=== PATIENT | male | born 1985 | race Hispanic/Latino ===

== ENCOUNTER 2023-06-30 15:07 | Emergency (ER) | payer OTHER, SELFPAY ==
[2023-06-30 15:08] VITALS: BP 162/106; PULSE 93; RESP 18; TEMP 36.4; O2SAT 98
--- NOTE | 2023-06-30 15:41 | EDS_ITS ---
HPI History of Present Illness Chief Complaint: Complaint Informant: patient Narrative Narrative: Patient states started by having diarrhea for about the past 1 week. It has been watery, some occasional lower abdominal cramping that is mild, and he has hemorrhoids that he can feels whenever he bears down to either have diarrhea or to urinate, he states he can feel them come out and then go back in. Right now while not Valsalva-maneuvering, he does not have any discomfort there and feels like they are back inside. He has been having bright red blood per rectum along with the diarrhea/bowel movements. Also states about a week ago he slipped on some black ice outside, falling to his right side injuring his right lower lateral rib cage that has been hurting whenever he moves or takes deep breaths ever since but he denies any dyspnea or other chest discomfort. He denies any hematuria but has been having urinary symptoms for several days, states he feels like he needs to urinate but is having trouble getting it all out and does not feel like he is emptying his bladder. There is some dysuria. He denies any travel out of the area recently. No recent antibiotics for anything. Denies any suspicious food intake. No known sick contacts. States he is on Ozempic which is new about 2 months ago, he was not having any problems or side effects initially until all of this started about a week ago. [facility] Medical History (Updated 06/30/23 @ 18:[address] Ladarius Perales MD) Bipolar 1 disorder Type 2 diabetes mellitus Home Medications hydrocortisone 1 %-pramoxine 1 % rectal foam (Proctofoam HC) 1 applic AL QHS PRN hemorrhoids 2 weeks #10 grams 06/30/23 [Rx Last Taken Unknown] sulfamethoxazole 800 mg-trimethoprim 160 mg tablet 1 tab PO BID #6 TABLETS 06/30/23 [Rx Last Taken Unknown] Allergy/AdvReac Type Severity Reaction Status Date / Time No Known Allergies Allergy Verified 06/30/23 15:08 Social History Smoking Status: Never smoker ROS ROS ED Constitutional Constitutional ED: Denies chills or fever(s) Eyes Eyes: Denies change in vision or diplopia ENT ENT ED: Denies rhinorrhea or sore throat Cardiovascular Cardiovascular: Denies chest pain or palpitations Respiratory/Chest Respiratory/Chest: Denies cough or dyspnea Gastrointestinal Gastrointestinal: Reports abdominal pain, diarrhea, hematochezia, hemorrhoids and vomiting; Denies melena or nausea Genitourinary Genitourinary ED: Reports dysuria, urinary frequency and other Details: Feels like trouble emptying bladder. no perineal pain, or pain when having BM except for anal pain due to hemorrhoids. ; Denies hematuria Musculoskeletal Musculoskeletal: Reports back pain; Denies neck pain Integumentary Denies abscess or rash Neurologic Neurologic: Denies headache(s), paresthesias or weakness Psychiatric Psychiatric: Denies suicidal ideation or suicidal thoughts EXAM Physical Exam Const Vital Signs: 06/30/23 15:08 06/30/23 17:08 Temperature 97.6 F L Temperature Source Temporal Pulse Rate 93 86 Respiratory Rate 18 14 Blood Pressure 162/106 H 155/82 H Blood Pressure Mean 124 106 Pulse Ox 98 97 Oxygen Delivery Method Room Air Room Air Positive well nourished, well developed and obese General Appearance ED: well developed and NAD Nutritional Appearance: obese HEENT Reports moist mucous membranes normocephalic and atraumatic Eyes PERRL and EOMs intact bilaterally Neck full ROM and supple Resp normal respiratory effort and clear to auscultation bilaterally Cardio regular rate, regular rhythm and no murmurs GI non-tender and non-distended Auscultation: normoactive bowel sounds Palpation: soft Back/Spine no CVA tenderness Back/Spine Narrative: Tender right lateral lumbar back, basically in ribs 10 and 11. No outward signs of trauma. No true CVA tenderness. General Back: other FROM Extremity normal to inspection General Extremety ED: Negative for edema, pulses abnormal or tenderness General Extremity: Negative for edema or pulses abnormal Neuro oriented x3, CN's II-XII intact bilaterally and no sensory deficits noted Sensorium / Orientation: awake and alert Motor Exam: strength 5/5 throughout Psych mental status grossly normal Skin no rashes or lesions noted and no wounds MDM MDM MDM Narrative Medical decision making narrative: I did obtain a 6 view x-ray series of the right rib cage including PA chest all of which is unremarkable on my interpretation. Radiology was in agreement no obvious fractures or pneumothorax. I did obtain some labs they look good, his urine shows no acute infection, will refer him to urology. Could be a urethritis, will try a 3-day course of bactrim to cover for bacterial etiologies; he does not have high risk for GC/Chlamydia, but I sent those off for testing and that is pending. He does not have any symptoms of prostate pain, but he is obese and I would be unable to reach his prostate on exam so I deferred that exam. Patient bladder scanned for 145 cc before urinating, he was only able to urinate less than 20 cc but based on this I would not advise a catheter. With regards to his diarrhea, 3 days of antibiotics is not likely to make this a lot worse, but if it does he is advised to stop them. He is more than likely having diarrhea from either a diet or viral etiology, less likely bacterial but we ordered an enteric bacterial panel just in case since he was having blood in it, although he does not have any specific risk factors for bacterial etiologies. The blood is more likely coming from the hemorrhoids talks about I will prescribe him something for that. Advised to follow-up. I do not think we need to treat him empirically for prostatitis at this time especially since he has acute diarrhea. Lab Data Attestation: I reviewed the patient's lab results. Labs: Laboratory Results - last 24 hr 06/30/23 06/30/23 15:55 18:19 WBC 6.3 RBC 6.29 H Hgb 16.9 H Hct 50.3 MCV 80.0 MCH 26.9 L MCHC 33.6 RDW Std Deviation 38.5 RDW Coeff of [place] 13.3 Plt Count 202 MPV 9.6 Immature Gran % (Auto) 0.500 Neut % (Auto) 52.8 Lymph % (Auto) 28.6 [place] % (Auto) 10.2 H Eos % (Auto) 7.3 H Baso % (Auto) 0.6 Absolute Neuts (auto) 3.3 Absolute Lymphs (auto) 1.79 Nucleated RBC % 0 Sodium 138 Potassium 4.1 Chloride 107 Carbon Dioxide 26.0 Anion Gap 5 BUN 8 Creatinine 0.96 Est GFR (MDRD) Af Amer 112 Est GFR (MDRD) Non-Af 93 BUN/Creatinine Ratio 8.3 L Glucose 131 H Calcium 8.9 Total Bilirubin 0.50 AST 48 H ALT 45 Alkaline Phosphatase 94 Total Protein 7.2 Albumin 4.1 Globulin 3.1 Albumin/Globulin Ratio 1.3 Urine Color Yellow Urine Clarity Sl. Cloudy Urine pH 5.0 Ur Specific [place] 1.030 Urine Protein 30 H Urine Glucose (UA) Normal Urine Ketones 5 H Urine Occult Blood 10 H Urine Nitrite Negative Urine Bilirubin Negative Urine Urobilinogen Normal Ur Leukocyte Esterase 25 H Urine RBC 0-5 SEEN Urine WBC 0-5 SEEN Ur Squamous Epith Cells 0-5 SEEN Urine Bacteria 0 SEEN Urine Mucus 2+ Radiography Diagnostic Testing: Clinical Impression(s) from Imaging Studies Ribs w/Chest X-Ray 06/30/23 16:03 IMPRESSION: Negative chest and right ribs series. Electronically Signed: Darius Hale MD at 16:29 EDT Reading Location ID and State: [facility] / [place] , Service support , Discharge Plan Triage Chief Complaint: Complaint ED Provider: Ladarius Perales Dx/Rx/DC Orders Clinical Impression: Contusion of rib on right side, Dysuria, Bleeding external hemorrhoids, Acute diarrhea Instructions: ED Dysuria, Uncertain Cause (Adult), ED Hemorrhoids Prescriptions: New sulfamethoxazole-trimethoprim [sulfamethoxazole-trimethoprim] 800-160 mg tablet 1 tab PO BID Qty: 6 0RF Proctofoam HC 1-1 % foam 1 applic AL QHS PRN (Reason: hemorrhoids) 14 Days Qty: 10 0RF Primary Care Provider: Care Physician,No Primary Referrals: Alexis Dumont MD [Med Staff - Active Staff] - 1 Week if not improving Disposition Disposition: Home, Self Care
--- NOTE | 2023-06-30 16:03 | RAD_ITS ---
EXAM: XR RIGHT RIBS AND AP CHEST, 3 OR MORE VIEWS CLINICAL INDICATION: injury/pain TECHNIQUE: Frontal and oblique views of the right ribs and frontal view of the chest. COMPARISON: None FINDINGS: LUNGS AND PLEURAL SPACES: Unremarkable. No consolidation or edema. No pneumothorax. No effusion. HEART: Unremarkable. Cardiac silhouette not enlarged. MEDIASTINUM: Central airways and mediastinal contour are unremarkable. BONES/JOINTS: Unremarkable. No evidence of displaced rib fractures. RAD/Ribs Uni Min 3V w/PA Chest IMPRESSION: Negative chest and right ribs series. Electronically Signed: Darius Hale MD at 16:29 EDT ,
[2023-06-30 16:27] LABS: Absolute Lymphocyte Count 1.79 X10^3/uL (0.83-4.51); Absolute Neutrophil Count 3.3 X10^3/uL (2.0-7.7); Basophil# 0.04 X10^3/uL; Basophil% 0.6 % (0-1); Eosinophil# 0.46 X10^3/uL; Eosinophils% 7.3 % (0-5); Hematocrit 50.3 % (40-54); Hemoglobin 16.9 g/dL (13.0-16.5); Lymphocyte # 1.79 X10^3/ul (0.83-4.51); Lymphocyte % 28.6 % (19-41); Mean Corp Hgb Conc 33.6 g/dL (32-36); Mean Corpuscular Hgb 26.9 pg (27.0-32.0); Mean Platelet Vol. 9.6 fl (6.2-12.0); Monocyte# 0.64 X10^3/uL; Monocyte% 10.2 % (0-10); NRBC Flagged by Analyzer 0 % (0-5); Neutrophil % 52.8 % (47-70); Platelet Count 202 K/mm3 (150-450); RBC Distribution Width CV 13.3 % (11.6-14.6); RBC Distribution Width SD 38.5 fl (35.1-43.9); Red Blood Count 6.29 M/mm3 (4.6-6.2); White Blood Count 6.3 K/mm3 (4.4-11.0)
[2023-06-30 16:43] LABS: ALB/GLOB Ratio 1.3 RATIO (0.9-2.4); AST(SGOT) 48 U/L (15-37); Alanine Aminotransfer ALT/SGPT 45 U/L (16-61); Albumin, Serum 4.1 g/dL (3.2-5.0); Alkaline Phosphatase 94 U/L (45-117); Anion Gap 5 (5-15); BUN 8 mg/dL (7-18); BUN/Creat Ratio 8.3 RATIO (10-20); Calcium,Total 8.9 mg/dL (8.5-10.1); Chloride 107 mmol/L (98-107); Creatinine, Serum 0.96 mg/dL (0.70-1.30); EST Glomerular Filtration Rate 93 mL/min (>60); Est Glom Filt Rate - Afr Amer 112 mL/min (>60); Globulin 3.1 g/dL (2.2-4.2); Glucose 131 mg/dL (74-106); Potassium 4.1 mmol/L (3.5-5.1); Protein, Total 7.2 g/dL (6.4-8.2); Sodium Level 138 mmol/L (136-145)
[2023-06-30 17:08] VITALS: BP 155/82; PULSE 86; RESP 14; O2SAT 97
[2023-06-30 18:22] LABS: Bacteria 0 SEEN /hpf (None Seen)
[2023-06-30 18:24] LABS: Color, Urine Yellow (Yellow); Glucose, Dipstick Normal (Normal); Ketone-Dipstick 5 mg/dl (Negative); Leukocyte Esterase-Dipstick 25 /ul (Negative); Nitrite-Dipstick Negative (Negative); Occult Blood-Urine 10 /ul (Negative); Protein-Dipstick 30 mg/dl (Negative); Urine Bilirubin Dipstick Negative (Negative); Urine Clarity Sl. Cloudy (Clear); Urine Urobilinogen Normal (Normal)
[2023-06-30 18:30] LABS: Mucous, Urine 2+ /hpf (<or=2+); Red Blood Cells-Urine 0-5 SEEN /hpf (0-5); Squamous Epithelial Cells - UA 0-5 SEEN /hpf (0-5); White Blood Cells 0-5 SEEN /hpf (0-5)
[2023-06-30 19:00] VITALS: BP 146/77; PULSE 79; RESP 18; O2SAT 97
[2023-06-30 19:08] VITALS: BP 146/77; PULSE 79; RESP 18; TEMP 36.5; O2SAT 97
== END 2023-06-30 19:08 | disposition home or self-care (01) ==
PROVIDERS: Emergency Provider Emergency Medicine; Visit Provider Emergency Medicine
DX: R19.7 Diarrhea, unspecified (principal); E11.9 Type 2 diabetes mellitus without complications; S20.211A Contusion of right front wall of thorax, initial encounter; W00.0XXA Fall on same level due to ice and snow, initial encounter; R30.0 Dysuria; K64.4 Residual hemorrhoidal skin tags; Z79.85 Long-term (current) use of injectable non-insulin antidiabetic drugs
CPT/HCPCS: 71101; 80053; 81001; 85025; 99283; A4216

== ENCOUNTER 2024-11-07 13:55 | Emergency (ER) | payer OTHER, SELFPAY ==
[2024-11-07 13:55] VITALS: BP 150/96; PULSE 96; RESP 20; TEMP 36.4; O2SAT 98
--- NOTE | 2024-11-07 14:41 | ED.VIS.BACK ---
HPI History of Present Illness Chief Complaint: Back Informant: patient Narrative Narrative: Right lower back pain 2 days ago at work. Works at [employer]. States talking and standing up felt pain in his back. Pain goes to his buttocks to his groin and lateral thigh. No loss of bowel or bladder control. Tylenol Motrin taken at home with mild relief. Did not take them today. Has been icing. History sciatica on the left side in 2015. He is diabetic with neuropathy. Denies any chronic kidney disease. He takes metformin and Ozempic. Spouse was on the phone states he was on gabapentin for his neuropathy however is not taking for over a year. Prior similar symptoms: Yes PFSH PFSH Medical History Bipolar 1 disorder Type 2 diabetes mellitus Home Medications ?Medication ?Instructions ?Recorded ?Last Taken ?Type hydrocortisone 1 %-pramoxine 1 % 1 applic MI QHS PRN hemorrhoids 2 06/30/23 Unknown Rx rectal foam (Proctofoam HC) weeks #10 grams sulfamethoxazole 800 1 tab PO BID #6 TABLETS 06/30/23 Unknown Rx mg-trimethoprim 160 mg tablet amlodipine 5 mg tablet 5 mg PO DAILY 11/07/24 Unknown History blood-glucose sensor (Dexcom G7 11/07/24 Unknown History Sensor device) bupropion HCl 150 mg tablet,12 hr 150 mg PO DAILY 11/07/24 Unknown History sustained-release diazepam 5 mg tablet 5 mg PO Q8 PRN Muscle Spasm #12 11/07/24 Unknown Rx tabs divalproex 500 mg tablet,delayed 500 mg PO TID 11/07/24 Unknown History release ergocalciferol (vitamin D2) 1,250 PO 11/07/24 Unknown History mcg (50,000 unit) capsule fenofibrate 160 mg tablet 160 mg PO DAILY 11/07/24 Unknown History gabapentin 300 mg capsule 300 mg PO QHS #30 caps 11/07/24 Unknown Rx ibuprofen 600 mg tablet 600 mg PO Q6H PRN PRN pain #20 11/07/24 Unknown Rx TABLETS lamotrigine 200 mg tablet 200 mg PO DAILY 11/07/24 Unknown History lumateperone 42 mg capsule 42 mg PO DAILY 11/07/24 Unknown History (Caplyta) metformin 500 mg tablet,extended 1,000 mg PO BID 11/07/24 Unknown History release 24 hr metoprolol succinate 25 mg 25 mg PO DAILY 11/07/24 Unknown History tablet,extended release 24 hr semaglutide 2 mg/dose (8 mg/3 mL) mg subcut 11/07/24 Unknown History subcutaneous pen injector (Ozempic) Allergy/AdvReac Type Severity Reaction Status Date / Time No Known Allergies Allergy Verified 06/30/23 15:08 Social History Smoking Status: Never smoker ROS ROS ED Constitutional Constitutional ED: Denies fever(s) Cardiovascular Cardiovascular: Denies chest pain Respiratory/Chest Respiratory/Chest: Denies cough Gastrointestinal Gastrointestinal: Denies diarrhea or vomiting Musculoskeletal Musculoskeletal: Reports back pain; Denies none Integumentary Denies rash or wounds Neurologic Neurologic: Denies weakness EXAM Physical Exam Const Vital Signs: 11/07/24 13:55 11/07/24 15:32 Temperature 97.6 F L 97.6 F L Temperature Source Temporal Pulse Rate 96 82 Respiratory Rate 20 H 20 H Blood Pressure 150/96 H 145/74 H Blood Pressure Mean 114 97 Pulse Ox 98 97 Oxygen Delivery Method Room Air Positive well nourished and well developed General Appearance ED: well developed and NAD HEENT Reports moist mucous membranes normocephalic and atraumatic Eyes General Eye ED: Yes normal appearance of both eyes Neck full ROM Chest Wall Chest: Negative for tenderness Resp normal respiratory effort and normal air movement Effort and Inspection: symmetric chest movement; Negative for respiratory distress Cardio regular rate, regular rhythm and no murmurs Peripheral Pulses: pulses 2+ throughout GI normal to inspection, nondistended, normoactive bowel sounds and non-tender Palpation: Negative for guarding or rebound tenderness present Back/Spine Back/Spine Narrative: No midline tenderness. Right paralumbar tenderness. Straight leg test -1+ patellar reflex bilaterally. Extremity normal to inspection General Extremety ED: Negative for edema or tenderness General Extremity: Negative for edema Neuro oriented x3 and no sensory deficits noted Sensorium / Orientation: awake and alert Skin no rashes or lesions noted and no wounds MDM MDM MDM Narrative Medical decision making narrative: Interventions / MDM: Differential diagnosis: Lumbar strain, right sided sciatica, lumbar disc herniation Diagnosis considered but do not suspect: No cauda equina symptoms. My EKG interpretation: N/A Imaging independently reviewed and interpreted by myself: N/A External documents reviewed: N/A Test considered but not ordered:N/A ED course: Patient was able to stand bedside slowly. Has no cauda equina symptoms. Discussed lumbar strain with sciatica symptoms. Discussed possible disc herniation L3 dermatome with radiation into his groin. Discussed no indication for emergent MRI. Discussed conservative treatment with medications. He had Dexcom glucose was 211, he stated he just ate prior. He has no kidney injury history. I will treated with Toradol IM. He drove himself here. Will place him back on gabapentin at night and then use muscle relaxers with Valium as needed. Work restrictions will be given. He will follow-up with occupational health. All questions were answered. Re-evaluation: stable Disposition discussed with patient/family/significant other: Patient significant other Case discussed with consulting clinician: N/A This note was generated with [employer] dictation software. It may contain incorrect words, spelling, and punctuation that were not noted in checking the note before signing. Discharge Plan Triage Chief Complaint: Back ED Provider: Servando Mccoy Dx/Rx/DC Orders Clinical Impression: Lumbar strain, Sciatica Instructions: ED Back Sprain/Strain, ED Sciatica Prescriptions: New gabapentin 300 mg capsule 300 mg PO QHS Qty: 30 0RF ibuprofen 600 mg tablet 600 mg PO Q6H PRN PRN (Reason: pain) Qty: 20 0RF diazepam 5 mg tablet 5 mg PO Q8 PRN (Reason: Muscle Spasm) Qty: 12 0RF No Action sulfamethoxazole-trimethoprim [sulfamethoxazole-trimethoprim] 800-160 mg tablet 1 tab PO BID Qty: 6 0RF Proctofoam HC 1-1 % foam 1 applic MI QHS PRN (Reason: hemorrhoids) 14 Days Qty: 10 0RF bupropion HCl 150 mg tablet sustained-release 12 hr 150 mg PO DAILY lamotrigine 200 mg tablet 200 mg PO DAILY amlodipine 5 mg tablet 5 mg PO DAILY divalproex 500 mg tablet,delayed release (DR/EC) 500 mg PO TID metoprolol succinate 25 mg tablet extended release 24 hr 25 mg PO DAILY ergocalciferol (vitamin D2) 1,250 mcg (50,000 unit) capsule PO metformin 500 mg tablet extended release 24 hr 1,000 mg PO BID fenofibrate 160 mg tablet 160 mg PO DAILY (DME) Dexcom G7 Sensor Device MISCELLANEOUS Patient Comments: [NO ORIGINAL SIG] Caplyta 42 mg capsule 42 mg PO DAILY Ozempic 2 mg/dose (8 mg/3 mL) pen injector SUBCUT Patient Comments: [NO ORIGINAL SIG] Primary Care Provider: Nina Murray [employer] OPERATOR Referrals: Care Physician,No Primary [Non-Staff] - Activity Restrictions/Additional Instructions: Lumbar strain with sciatica symptoms. Take medication as prescribed. Work restrictions as given. Follow-up with occupational health for reevaluation. Print Language: Belarusian Disposition Disposition: Home, Self Care Discharge Date/Time: 11/07/24 15:10
[2024-11-07] MEDS: Ketorolac 30 MG/ML Syringe IM (14:44)
[2024-11-07 15:32] VITALS: BP 145/74; PULSE 82; RESP 20; TEMP 36.4; O2SAT 97
== END 2024-11-07 15:10 | disposition home or self-care (01) ==
LOC: ED 15:09
PROVIDERS: Emergency Provider Emergency Medicine; Visit Provider Emergency Medicine
DX: S39.012A Strain of muscle, fascia and tendon of lower back, initial encounter (principal); E11.9 Type 2 diabetes mellitus without complications; Z79.84 Long term (current) use of oral hypoglycemic drugs; M54.30 Sciatica, unspecified side; X58.XXXA Exposure to other specified factors, initial encounter; Y99.0 Civilian activity done for income or pay; Y92.89 Other specified places as the place of occurrence of the external cause; Z79.85 Long-term (current) use of injectable non-insulin antidiabetic drugs
CPT/HCPCS: 96374; 99282

== ENCOUNTER 2025-03-09 13:51 | Emergency (ER) | payer OTHER, SELFPAY ==
[2025-03-09 13:52] VITALS: BP 192/105; PULSE 90; RESP 18; TEMP 36.8; O2SAT 100; BMI 54.1
--- NOTE | 2025-03-09 14:12 | EX.ED.GENINJ ---
HPI History of Present Illness Chief Complaint: Back [facility] Medical History Bipolar 1 disorder Type 2 diabetes mellitus Home Medications ?Medication ?Instructions ?Recorded ?Last Taken ?Type hydrocortisone 1 %-pramoxine 1 % 1 applic AL QHS PRN hemorrhoids 2 06/30/23 Unknown Rx rectal foam (Proctofoam HC) weeks #10 grams sulfamethoxazole 800 1 tab PO BID #6 TABLETS 06/30/23 Unknown Rx mg-trimethoprim 160 mg tablet amlodipine 5 mg tablet 5 mg PO DAILY 11/07/24 Unknown History blood-glucose sensor (Dexcom G7 11/07/24 Unknown History Sensor device) bupropion HCl 150 mg tablet,12 hr 150 mg PO DAILY 11/07/24 Unknown History sustained-release diazepam 5 mg tablet 5 mg PO Q8 PRN Muscle Spasm #12 11/07/24 Unknown Rx tabs divalproex 500 mg tablet,delayed 500 mg PO TID 11/07/24 Unknown History release ergocalciferol (vitamin D2) 1,250 PO 11/07/24 Unknown History mcg (50,000 unit) capsule fenofibrate 160 mg tablet 160 mg PO DAILY 11/07/24 Unknown History gabapentin 300 mg capsule 300 mg PO QHS #30 caps 11/07/24 Unknown Rx ibuprofen 600 mg tablet 600 mg PO Q6H PRN PRN pain #20 11/07/24 Unknown Rx TABLETS lamotrigine 200 mg tablet 200 mg PO DAILY 11/07/24 Unknown History lumateperone 42 mg capsule 42 mg PO DAILY 11/07/24 Unknown History (Caplyta) metformin 500 mg tablet,extended 1,000 mg PO BID 11/07/24 Unknown History release 24 hr metoprolol succinate 25 mg 25 mg PO DAILY 11/07/24 Unknown History tablet,extended release 24 hr semaglutide 2 mg/dose (8 mg/3 mL) mg subcut 11/07/24 Unknown History subcutaneous pen injector (Ozempic) Allergy/AdvReac Type Severity Reaction Status Date / Time No Known Allergies Allergy Verified 03/09/25 13:55 Social History Smoking Status: Never smoker EXAM Physical Exam Const Vital Signs: 03/09/25 13:52 Temperature 98.2 F Temperature Source Oral Pulse Rate 90 Respiratory Rate 18 Blood Pressure 192/105 H Blood Pressure Mean 134 Pulse Ox 100 Oxygen Delivery Method Room Air [facility] Narrative Medical decision making narrative: HISTORY OF PRESENT ILLNESS: Chief complaint: Back pain 39-year-old male history of hypertension, bipolar 1 disorder, type 2 diabetes presents with back pain. Notes mechanical fall on ice 2 days ago. Denies head trauma or loss of consciousness. Endorses back pain and left hip pain. Patient denies any saddle anesthesia, urinary retention, bowel or bladder incontinence, lower extremity weakness, fever or IV drug use, no recent spinal manipulation or surgery, no recent urinary catheterization. REVIEW OF SYSTEMS : Pertinent positives: Back pain Pertinent negatives: Numbness, tingling, loss of sensation PHYSICAL EXAM: Nursing triage notes reviewed, Vital signs reviewed Primary Survey Airway: Intact Breathing: Bilateral breath sounds Circulation: Palpable bilateral femorals, Palpable bilateral radial, Palpable bilateral DP and Palpable bilateral PT Disability / Spine precautions GCS Score: Eye Openin Verbal Response: 5 Motor Response: 6 Secondary Survey Constitutional: Please see MDM Head: Atraumatic, Midface stable, NO jaw malocclusion, No Cephalohematoma, and No Lacerations noted Eye: Pupils equal round and reactive to light, Extraocular muscles intact and No periorbital ecchymosis or stepoff, no evidence of entrapment ENT: Oropharynx clear, no lacerations, no hemotympanum, no raccoon eyes or darby sign Cervical spine / Neck: No cervical spine bony tenderness, crepitance, or stepoff deformity Trachea midline Lungs: Clear to auscultation, No asymmetric rise and No crepitus, no flail chest Cardiac: Regular rate and rhythm and No murmurs Abdomen: Soft, Nontender and No rebound Pelvis: Pelvis stable to compression, TTP over right hip at the greater trochanter : No evidence of genital injury Back: No midline bony tenderness to thoracic. TTP over lower lumbar spine. Neuro: At baseline, intact strength and sensation in bilateral upper and lower extremities. 2+ patellar reflexes bilaterally. Extremities: NO gross Deformities Psych: Normal affect Nursing triage notes reviewed, Vital signs reviewed MEDICAL DECISION MAKING: Chief Complaint: please see [facility] Narrative: The patient was initially hemodynamically stable, afebrile and nontoxic-appearing. Primary secondary trauma surveys concerning for lumbar spine abnormality versus right hip abnormality. I obtained a CT scan lumbar spine x-ray of the right hip and pelvis ALL IMAGES (IF OBTAINED) HAVE BEEN PERSONALLY REVIEWED AND INTERPRETED BY MYSELF. X-ray of the right hip and pelvis was read reviewed Gina some showed no evidence obvious bony abnormality. Radiologist agrees my interpretation CT scan abdomen pelvis shows no evidence of obvious bony abnormality Tertiary trauma exam without new injury. Likely etiology back contusion and hip contusion. Will give child ibuprofen instruction strict return precautions. The patient and/or family, caregivers express understanding. The patient and/or family, caregivers agrees with the plan. Shared decision making: I will have a discussion with the patient and or visitors regarding risk/benefits of further testing or admission. They will be made aware of of the risk/benefits inherent in this decision they will be given the opportunity to voice understanding. Total critical care time today provided was at least 0 minutes. This excludes separately billable procedures. Critical care time (if documented) is secondary to the patient having high probability of clinically significant/life threatening deterioration in the patient's condition which required my urgent intervention. Impression: 1. Acute back contusion 2. Acute hip contusio Dispo: Discharge This note was generated with [employer] dictation software. It may contain incorrect words, spelling, and punctuation that were not noted in review of the chart prior to signing. Discharge Plan Triage Chief Complaint: Back ED Provider: Rufus Lozano Dx/Rx/DC Orders Instructions: ED Back Contusion Prescriptions: No Action sulfamethoxazole-trimethoprim [sulfamethoxazole-trimethoprim] 800-160 mg tablet 1 tab PO BID Qty: 6 0RF Proctofoam HC 1-1 % foam 1 applic AL QHS PRN (Reason: hemorrhoids) 14 Days Qty: 10 0RF bupropion HCl 150 mg tablet sustained-release 12 hr 150 mg PO DAILY lamotrigine 200 mg tablet 200 mg PO DAILY amlodipine 5 mg tablet 5 mg PO DAILY divalproex 500 mg tablet,delayed release (DR/EC) 500 mg PO TID metoprolol succinate 25 mg tablet extended release 24 hr 25 mg PO DAILY ergocalciferol (vitamin D2) 1,250 mcg (50,000 unit) capsule PO metformin 500 mg tablet extended release 24 hr 1,000 mg PO BID fenofibrate 160 mg tablet 160 mg PO DAILY (DME) pickrset G7 Sensor Device MISCELLANEOUS Patient Comments: [NO ORIGINAL SIG] Caplyta 42 mg capsule 42 mg PO DAILY Ozempic 2 mg/dose (8 mg/3 mL) pen injector SUBCUT Patient Comments: [NO ORIGINAL SIG] gabapentin 300 mg capsule 300 mg PO QHS Qty: 30 0RF ibuprofen 600 mg tablet 600 mg PO Q6H PRN PRN (Reason: pain) Qty: 20 0RF diazepam 5 mg tablet 5 mg PO Q8 PRN (Reason: Muscle Spasm) Qty: 12 0RF Stand Alone Forms: ED Work / School Excuse Primary Care Provider: [facility] Doctor,Out of Referrals: Davion Hermosillo MD [Med Staff - Active Staff, Family Practice] Activity Restrictions/Additional Instructions: Thank you for trusting us with your care today! The imaging of your low back as well as hip. Did not show signs of broken bone. You are likely suffering from bony contusions or bruises. This should resolve spontaneously with time. Please take Tylenol (2 pills, 650 mg), ibuprofen (2 pills, 400 mg) every 6 hours as needed for pain and fever control. Please return to the emergency department if your symptoms change or worsen. Please follow with your primary care physician for further outpatient evaluation and management. Print Language: Sami Disposition Disposition: Home, Self Care
--- NOTE | 2025-03-09 14:18 | CT_ITS ---
PROCEDURE: SPINE LUMBAR WITHOUT CONTRAST 03/09/2025 REASON FOR EXAM: BACK PAIN AFTER FALL TECHNIQUE: Procedure Code: CTSPL Modality: CT Procedure: SPINE LUMBAR WITHOUT CONTRAST Coronal and Sagittal reconstruction series were provided. One or more dose reduction techniques were used (e.g., Automated exposure control, adjustment of the mA and/or kV according to patient size, use of iterative reconstruction technique COMPARISON: None RADIATION DOSE SUMMARY: CTDlvol: 68 mGy DLP: 2781 mGycm FINDINGS: Vertebrae: No fracture seen. No paraspinal hematoma seen. Partial ankylosis of the SI joints. Alignment: Normal lumbar lordosis. L1-2: Normal L2-3: Normal L3-4: Normal L4-5: Normal L5-S1: Normal Sacrum: No fracture CT/Spine Lumbar without Contrast IMPRESSION: No acute abnormality Reading Location: [facility]
--- OUTSIDE RECORDS SUMMARY | 2025-03-09 14:26 | XMS RPT_ITS | CCD ---
Author Organization [facility] ENVIRONMENTAL COMPLIANCE ENGINEER [facility] Care Team Providers Care Aerobics Instructor Name Role Phone Pcp, No Primary Care Provider Unavailabl e Unavailable Primary Care Provider Unavailabl e Amy HEALY, Cate Primary Care Provider Pending Provider Unavailable Unavailable Unavailable Unavailable Syed [facility] Primary Care Provider Pending, Provider Primary Care Unavailable Miah, Mr. Jeff Gibbs Referring Unav ailable Miah, Mr. Jeff Gibbs Attending Unav ailable Syed [facility] Primary Care Provider [facility] Referring Unavailable [facility] Primary Care Unavailable [facility] FUR MIXER OPERATOR.[facility] Primary Care Provider NINA MURRAY Referring Unavailable [facility] Primary Care Unavailable MARTINNINA Referring Unavailable [facility] Primary Care Unavailable Dr. Servando Mccoy DO Emergency Provider [phone] Nina Murray [facility] Primary Care Provider Servando Mccoy Attending Unavailable DANNIE HEWITT Primary Care Unavailable Medications Current Medications Medication Drug Class(es) Dates Sig (Normalized) Sig (Original) amLODIPine 5 mg oral tablet (12 sources) Dihydropyridine Calcium Channel Baldev Start: 11-07-2024 take 1 tablet by mouth once daily Amlodipine 5 mg tablet Active 5 mg PO DAILY November 07, 2024 12:00am Start: 06-04-2022 amLODIPine (NO RVASC) 5 mg tablet 06/04/2022 Active atorvastatin 80 mg oral tablet (11 sources) HMG-CoA Reductase Inhibitor Start: 06-04-2022 atorvastatin (LIPITOR) 80 mg tablet 06/04/2022 Active Blood-Glucose Sensor device (1 source) Start: 11-07-2024 Blood-Glucose Sensor device Active [facility] November 07, 2024 12:00am 12 hr buPROPion hydrochloride 150 mg extended release oral tablet (18 sources) Aminoketone Start: 11-07-2024 take 1 tablet by mouth once daily Bupropion Hcl 150 mg tablet sustained-release 12 hr Active 150 mg PO DAILY November 07, 2024 12:00am Start: 06-23-2023 buPROPion XL ( WELLBUTRIN XL) 300 mg 24 hr tablet 06/23/2023 Active Start: 06-04-2022 buPROPion XL ( WELLBUTRIN XL) 150 mg 24 hr tablet 06/04/2022 Active cholecalciferol 0.025 mg oral tablet (2 sources) Vitamin D vitamin D (CHOLECALCIFEROL) 25 MCG (1000 UT) TABS tablet Take 1,000 Units by mouth daily 0 Active diazePAM 5 mg oral tablet (1 source) Benzodiazepine Start: take 1 tablet by mouth every eight hours as needed for muscle spasms Diazepam 5 mg tablet Active 5 mg PO EVERY 8 HOURS as needed for Muscle Spasm 12 0 November 07, 2024 12:00am 0.5 ml dulaglutide 1.5 mg/ml auto-injector (11 sources) GLP-1 Receptor Agonist Start: TRULICITY 0.75 mg/0.5 mL pen injector 05/22/2022 Active ergocalciferol 1.25 mg oral capsule (1 source) Provitamin D2 Compound Start: Ergocalciferol (Vitamin D2) 1,250 mcg (50,000 unit) capsule Active PO November 07, 2024 12:00am fenofibrate 160 mg oral tablet (1 source) Peroxisome Proliferator Receptor alpha Agonist Start: take 1 tablet by mouth once daily Fenofibrate 160 mg tablet Active 160 mg PO DAILY November 07, 2024 12:00am FLUoxetine 20 mg oral capsule (11 sources) Serotonin Reuptake Inhibitor Start: FLUoxetine (PROZAC) 20 mg capsule 05/07/2022 Active FREESTYLE WANDA 3 SENSOR ridge (11 sources) Start: FREESTYLE WANDA 3 SENSOR ridge 04/12/2022 Active Start: 04-12-2022 FREESTYLE LIBR E 3 SENSOR ridge gabapentin 300 mg oral capsule (1 source) Anti-epileptic Agent Start: 11-07-2024 take 1 capsule by mouth at bedtime Gabapentin 300 mg capsule Active 300 mg PO AT BEDTIME 30 November 07, 2024 12:00am glipiZIDE 5 mg oral tablet (14 sources) Sulfonylurea Start: 01-09-2021 take 1 tablet by mouth twice daily before mealtime glipiZIDE (GLUCOTROL) 5 MG tablet Take 1 tablet by mouth 2 times daily (before meals) 60 tablet 2 01/09/2021 Active Comment on above: Take 5 mg by mouth t wice daily before meals. hydroCHLOROthiazide 25 mg / lisinopril 20 mg oral tablet (1 source) Thiazide Diuretic, Angiotensin Converting Enzyme Inhibitor Start: 01-09-2021 take 1 tablet by mouth once daily lisinopril-hydroCH LOROthiazide (PRINZIDE;ZESTORET IC) 20-25 MG per tablet Indications: Primary hypertension Take 1 tablet by mouth daily 90 tablet 1 01/09/2021 Active hydrocortisone 25 mg/ml topical cream (2 sources) Corticosteroid Start: 06-09-2022 End: 06-19-2022 hydrocortisone (ANUSOL-HC) 2.5 % rectal cream Indications: Hemorrhoids, unspecified hemorrhoid type by RECTAL route twice daily for 10 days. 28 g 1 06/09/2022 06/19/2022 Active Comment on above: by RECTAL route twic e daily for 10 days. hydrocortisone acetate 10 mg/ml / pramoxine hydrochloride 10 mg/ml rectal foam (2 sources) Corticosteroid Start: 06-30-2023 Hydrocortisone-Pra moxine (Proctofoam Hc) 1-1 % foam Active 1 NMA RC AT BEDTIME as needed for hemorrhoids June 30, 2023 12:00am Start: 06-30-2023 Hydrocortisone -Pramoxine (Proctofoam Hc) 1-1 % foam Active 1 APPLIC RC AT BEDTIME 01 08June 30, 2023 12:00am ibuprofen 600 mg oral tablet (2 sources) Nonsteroidal Anti-inflammatory Drug Start: 11-07-2024 take 1 tablet by mouth every six hours as needed for pain Ibuprofen 600 mg tablet Active 600 mg PO EVERY 6 HOURS NEEDED as needed for pain November 07, 2024 12:00am Start: 05-08-2022 take 1 tablet by sushila th once 8 hour(s) after mealtime Ibuprofen 800 MG Oral Tablet TAKE 1 TABLET EVERY 8 HOURS AFTER MEALS. Quantity: 21 Refills: 0 Ordered: 08-May-2022 Jeff Dooley PA-C Start : 08-May-2022 Active insulin glargine-yfgn (SEMGL EE) 100 unit/mL (3 mL) insulin pen (11 sources) Start: 02-25-2022 insulin glargi ne-yfgn (SEMGLEE) 100 unit/mL (3 mL) insulin pen 02/25/2022 Active Start: 02-25-2022 insulin glargi ne-yfgn (SEMGLEE) 100 unit/mL (3 mL) insulin pen insulin isophane, human 100 unt/ml injectable suspension (2 sources) insulin NPH (HUM ULIN N;NOVOLIN N) 100 UNIT/ML injection vial Inject into the skin 2 times daily (before meals) 0 Active insulin NPH human isophane (HUMULIN N NPH INSULIN KWIKPEN SUBCUTANEOUS) (12 sources) inject 40 [IU] by subcutaneous injection once daily at bedtime insulin NPH human isophane (HUMULIN N NPH INSULIN KWIKPEN SUBCUTANEOUS) Inject 40 Units subcutaneously daily at bedtime. Active inject 40 [IU] by duvall bcutaneous injection once daily at bedtime insulin NPH human isophane (HUMULIN N BANKING REPRESENTATIVE H INSULIN KWIKPEN SUBCUTANEOUS) Inject 40 Units subcutaneously daily at bedtime. 0 Active Comment on above: Inject 40 Units subc utaneously daily at bedtime. lamoTRIgine 200 mg oral tablet (15 sources) Mood Stabilizer, Anti-epileptic Agent Start: 5 take 1 tablet by mouth once daily Lamotrigine 200 mg tablet Active 200 mg PO DAILY November 07, 2024 12:00am Start: 06-03-2022 lamoTRIgine (L AMICTAL) 200 mg tablet 06/03/2022 Active Start: 01-07-2021 lamoTRIgine (L AMICTAL) 100 MG tablet End: 06-09-2022 take 1 tablet by mouth once daily lamoTRIgine (LAMICTAL) 25 mg tablet Take 25 mg by mouth once daily. 0 06/09/2022 Discontinued Comment on above: Take 25 mg by mouth once daily. linaclotide 0.145 mg oral capsule (11 sources) Guanylate Cyclase-C Agonist Start: 3 take 1 capsule by mouth once daily linaclotide (LINZESS) 145 mcg capsule Indications: Constipation, unspecified constipation type Take 1 capsule by mouth once daily. 30 capsule 2 06/09/2022 Active Comment on above: Take 1 capsule by [facility] once daily. lisinopril 20 mg oral tablet (13 sources) Angiotensin Converting Enzyme Inhibitor Start: 3 lisinopril (ZESTRIL) 20 mg tablet 06/04/2022 Active Start: 06-18-2020 End: 06-09-2022 take 1 tablet by mouth once daily lisinopril (ZESTRIL, PRINIVIL) 10 mg tablet Take 1 tablet by mouth once daily. 30 tablet 1 06/18/2020 06/09/2022 Discontinued Comment on above: Take 1 tablet by [facility] once daily. Lumateperone (Lumateperone 42 Mg Capsule) 42 mg capsule (1 source) Start: 5 take 1 capsule by mouth once daily Lumateperone (Lumateperone 42 Mg Capsule) 42 mg capsule Active 42 mg PO DAILY November 07, 2024 12:00am 24 hr metFORMIN hydrochloride 500 mg extended release oral tablet (15 sources) Biguanide Start: 5 Metformin 500 mg tablet extended release 24 hr Active 1000 mg PO TWICE A DAY November 07, 2024 12:00am Start: 01-09-2021 take 1 tablet by [facility] twice daily at mealtime metFORMIN (GLUCOPHAGE) 500 MG tablet Take 1 tablet by mouth 2 times daily (with meals) 60 tablet 2 01/09/2021 Active Comment on above: Take 500 mg by mouth twice daily with meals. 24 hr metoprolol succinate 25 mg extended release oral tablet (1 source) beta-Adrenergic Baldev Start: 11-08-19 take 1 tablet by mouth once daily Metoprolol Succinate 25 mg tablet extended release 24 hr Active 25 mg PO DAILY November 07, 2024 12:00am Semaglutide (Semaglutide 2 Mg/Dose (8 Mg/3 Ml) Subcutaneous Pen Injector) 2 mg/dose (8 mg/3 mL) pen injector (1 source) Start: 11-08-19 Semaglutide (Semaglutide 2 Mg/Dose (8 Mg/3 Ml) Subcutaneous Pen Injector) 2 mg/dose (8 mg/3 mL) pen injector Active mg SC November 07, 2024 12:00am sulfamethoxazole 800 mg / trimethoprim 160 mg oral tablet (14 sources) Dihydrofolate Reductase Inhibitor Antibacterial, Sulfonamide Antimicrobial Start: 06-30-19 Sulfamethoxazole-Tr imethoprim 800-160 mg tablet Active 1 {tbl} PO TWICE A DAY 6 June 30, 2023 12:00am Start: 06-30-2023 take 1 tablet by sushila th twice daily Sulfamethoxazole-Trimethoprim Active 1 T ABLET PO TWICE A DAY June 30, 2023 12:00am take 1 tablet by sushila th three times weekly sulfamethoxazole-trimethoprim (BACTRIM DS,SEPTRA DS) 800-160 mg per tablet Take 1 tablet by mouth three times a week. Active Comment on above: Take 1 tablet by sushila th three times a week. divalproex sodium 500 mg delayed release oral tablet (12 sources) Mood Stabilizer, Anti-epileptic Agent Start: 11-07-2024 take 1 tablet by mouth three times daily Divalproex 500 mg tablet,delayed release (DR/EC) Active 500 mg PO THREE TIMES A DAY November 07, 2024 12:00am Start: 05-27-2022 divalproex ER (DEPAKOTE ER) 250 mg 24 hr tablet 05/27/2022 Active Completed/Discontinued Medications Medication Drug Class(es) Dates Sig (Normalized) Sig (Original) albuterol 0.83 mg/ml inhalation solution (1 source) beta2-Adrenergic Agonist Start: 09-09-2020 End: 09-09-2020 albuterol (PROVENTIL) nebulizer solution 2.5 mg Start: 09-09-2020 End: 09-09-2020 albuterol (PROVENTIL) nebuli zer solution 2.5 mg amoxicillin 875 mg / clavulanate 125 mg oral tablet (4 sources) Penicillin-class Antibacterial Start: 06-04-2022 End: 09-24-2022 amoxicillin-clavulanic acid (AUGMENTIN) 875-125 mg per tablet Start: 05-08-2022 take 1 tablet by sushila th once daily Amoxicillin-Pot Clavulanate 875-125 MG Oral Tablet TAKE 1 TABLET EVERY 12 HOURS DAILY. Quantity: 20 Refills: 0 Ordered: 08-May-2022 Jeff Dooley PA-C Start : 08-May-2022 Active cyclobenzaprine hydrochloride 10 mg oral tablet (1 source) Muscle Relaxant Start: 05-08-2022 take 1 tablet by mouth every eight hours as needed Cyclobenzaprine HCl - 10 MG Oral Tablet Take 1 tablet every 8 hours as needed Quantity: 21 Refills: 0 Ordered: 08-May-2022 Jeff Dooley PA-C Start : 08-May-2022 Active predniSONE 20 mg oral tablet (1 source) take 1 tablet by mouth once daily predniSONE (DELTASONE) 20 mg tablet Take 20 mg by mouth once daily. 0 Active Comment on above: Take 20 mg by mouth once daily. Problems Active Problems Problem Classification Problem Date Documented Da te Episodic/Chronic Abdominal pain (1 source) Generalized abdominal pain; Translations: [Generalized abdominal pain] 06-30-2023 Episodic Acute and chronic tonsillitis (1 source) Tonsillitis; Translations: [Acute tonsillitis] Episodic Asthma (2 sources) Uncomplicated asthma; Translations: [Unspecified asthma, uncomplicated] Onset: 07-28-2020 07-28-2020 Chronic Coronary atherosclerosis and other heart disease (1 source) Old myocardial infarction; Translations: [Old myocardial infarction] Onset: 12-29-2023 Chronic Diabetes mellitus with complications (1 source) Type II diabetes mellitus uncontrolled; Translations: [Type 2 diabetes mellitus with hyperglycemia] Onset: 01-09-2021 01-09-2021 Chronic Diabetes mellitus without complication (3 sources) Type 2 diabetes mellitus; Translations: [Type 2 diabetes mellitus without complication] Onset: 07-28-2020 07-28-2020 Chronic Disorders of lipid metabolism (1 source) Mixed hyperlipidemia; Translations: [Mixed hyperlipidemia] Chronic Essential hypertension (2 sources) Essential hypertension; Translations: [Essential (primary) hypertension] Onset: 01-09-2021 01-09-2021 Chronic Genitourinary symptoms and ill-defined conditions (3 sources) Dysuria; Translations: [Dysuria] 06-30-2023 Episodic Hemorrhoids (3 sources) Hemorrhoids; Translations: [Unspecified hemorrhoids] Episodic Immunity disorders (3 sources) Sarcoidosis; Translations: [Sarcoidosis, unspecified] Onset: 07-28-2020 07-28-2020 Chronic Immunizations and screening for infectious disease (1 source) Suspected disease caused by 2019-nCoV; Translations: [Suspected COVID-19 virus infection] Episodic Mood disorders (1 source) Bipolar disorder in full remission; Translations: [Bipolar disorder, currently in remission, most recent episode unspecified] Onset: 01-09-2021 01-09-2021 Chronic Other gastrointestinal disorders (1 source) Constipation; Translations: [Constipation, unspecified] Episodic Other gastrointestinal disorders (2 sources) Acute diarrhea; Translations: [Diarrhea, unspecified] 06-30-2023 Episodic Other injuries and conditions due to external causes (1 source) Other specified injuries of thorax, initial encounter; Translations: [Contusion of rib on right side] 07-08-2023 Episodic Other lower respiratory disease (1 source) Cough; Translations: [Acute cough] Episodic Other nutritional; endocrine; and metabolic disorders (1 source) Body mass index 40+ - severely obese; Translations: [Morbid (severe) obesity due to excess calories] Onset: 01-09-2021 01-09-2021 Chronic Other screening for suspected conditions (not mental disorders or infectious disease) (2 sources) Liver function tests abnormal; Translations: [Abnormal results of liver function studies] Onset: 01-09-2021 Episodic Other upper respiratory infections (1 source) Sore throat symptom; Translations: [Acute pharyngitis, unspecified] Episodic Otitis media and related conditions (1 source) Acute otitis media; Translations: [Unspecified otitis media] Episodic Residual codes; unclassified (3 sources) Obstructive sleep apnea syndrome; Translations: [Obstructive sleep apnea (adult) (pediatric)] Onset: 07-28-2020 Chronic Residual codes; unclassified (1 source) Influenza-like symptoms; Translations: [Other general symptoms and signs] Episodic Spondylosis; intervertebral disc disorders; other back problems (2 sources) Thoracic nerve root pain; Translations: [Thoracic or lumbosacral neuritis or radiculitis, unspecified] 11-07-2024 Episodic Sprains and strains (2 sources) Low back strain; Translations: [Strain of muscle, fascia and tendon of lower back, initial encounter] Onset: 12-17-2024 11-07-2024 Episodic Superficial injury; contusion (1 source) Contusion of rib; Translations: [Contusion of right front wall of thorax, initial encounter] 06-30-2023 Episodic Past or Other Problems Problem Classification Problem Date Documented Da te Episodic/Chronic Other lower respiratory disease (3 sources) Dyspnea; Translations: [Shortness of breath] Onset: 07-28-2020 Episodic Results Test Name Value Interpretation Reference Range Facility Emergency Department Summary on 11-07-2024 Emergency Department Summary [facility] Medical Records Department [address] [place] [address] Emergency Department Summary 11/07/24 MR#: [id number] Acct: [id number] Name: EM SANZ Rep #: [id number] : 1985 39 From: Servando Pool PCP: Nina Murray COPY OPERATOR Status:DEP ER Location: ED HPI History of Present Illness Chief Complaint: Back Informant: patient Narrative Narrative: Right lower back pain 2 days ago at work. Works at [employer]. States talking and standing up felt pain in his back. Pain goes to his buttocks to his groin and lateral thigh. No loss of bowel or bladder control. Tylenol Motrin taken at home with mild relief. Did not take them today. Has been icing. History sciatica on the left side in 2014. He is diabetic with neuropathy. Denies any chronic kidney disease. He takes metformin and Ozempic. Spouse was on the phone states he was on gabapentin for his neuropathy however is not taking for over a year. Prior similar symptoms: [facility] Medical History Bipolar 1 disorder Type 2 diabetes mellitus Home Medications ???Medication ???Instructions ???Recorded ???Last Taken ???Type hydrocortisone 1 %-pramoxine 1 % 1 applic IL QHS PRN hemorrhoids 2 06/30/23 Unknown Rx rectal foam (Proctofoam HC) weeks #10 grams sulfamethoxazole 800 1 tab PO BID #6 TABLETS 06/30/23 U nknown Rx mg-trimethoprim 160 mg tablet amlodipine 5 mg tablet 5 mg PO DAILY 11/07/24 Unknown His tory blood-glucose sensor (Dexcom G7 11/07/24 Unknown History Sensor device) bupropion HCl 150 mg tablet,12 hr 150 mg PO DAILY 11/07/24 Unknown History sustained-release diazepam 5 mg tablet 5 mg PO Q8 PRN Muscle Spasm #12 Unknown Rx tabs divalproex 500 mg tablet,delayed 500 mg PO TID 11/07/24 Unknown His tory release ergocalciferol (vitamin D2) 1,250 PO 11/07/24 Unknown History mcg (50,000 unit) capsule fenofibrate 160 mg tablet 160 mg PO DAILY 11/07/24 Unknown H istory gabapentin 300 mg capsule 300 mg PO QHS #30 caps 11/07/24 Un known Rx ibuprofen 600 mg tablet 600 mg PO Q6H PRN PRN pain #20 Unknown Rx TABLETS lamotrigine 200 mg tablet 200 mg PO DAILY 11/07/24 Unknown H istory lumateperone 42 mg capsule 42 mg PO DAILY 11/07/24 Unknown Hi story (Caplyta) metformin 500 mg tablet,extended 1,000 mg PO BID 11/07/24 Unknown H istory release 24 hr metoprolol succinate 25 mg 25 mg PO DAILY 11/07/24 Unknown Hi story tablet,extended release 24 hr semaglutide 2 mg/dose (8 mg/3 mL) mg subcut 11/07/24 Unknown Histor y subcutaneous pen injector (Ozempic) Allergy/AdvReac Type Severity Reaction Status Date / Time No Known Allergies Allergy Verified 06/30/23 15:08 Social History Smoking Status: Never smoker ROS ROS ED Constitutional Constitutional ED: Denies fever(s) Cardiovascular Cardiovascular: Denies chest pain Respiratory/Chest Respiratory/Chest: Denies cough Gastrointestinal Gastrointestinal: Denies diarrhea or vomiting Musculoskeletal Musculoskeletal: Reports back pain; Denies none Integumentary Denies rash or wounds Neurologic Neurologic: Denies weakness EXAM Physical Exam Const Vital Signs: 11/07/24 13:55 11/07/24 15:32 Temperature 97.6 F L 97.6 F L Temperature Source Temporal Pulse Rate 96 82 Respiratory Rate 20 H 20 H Blood Pressure 150/96 H 145/74 H Blood Pressure Mean 114 97 Pulse Ox 98 97 Oxygen Delivery Method Room Air Positive well nourished and well developed General Appearance ED: well developed and NAD HEENT Reports moist mucous membranes normocephalic and atraumatic Eyes General Eye ED: Yes normal appearance of both eyes Neck full ROM Chest Wall Chest: Negative for tenderness Resp normal respiratory effort and normal air movement Effort and Inspection: symmetric chest movement; Negative for respiratory distress Cardio regular rate, regular rhythm and no murmurs Peripheral Pulses: pulses 2+ throughout GI normal to inspection, nondistended, normoactive bowel sounds and non-tender Palpation: Negative for guarding or rebound tenderness present Back/Spine Back/Spine Narrative: No midline tenderness. Right paralumbar tenderness. Straight leg test -1+ patellar reflex bilaterally. Extremity normal to inspection General Extremety ED: Negative for edema or tenderness General Extremity: Negative for edema Neuro oriented x3 and no sensory deficits noted Sensorium / Orientation: awake and alert Skin no rashes or lesions noted and no wounds MDM MDM MDM Narrative Medical decision making narrative: Interventions / MDM: Differential diagnosis: Lumbar strain, right sided sciatica, lumbar disc her (more content not included)... Normal [facility] US ABD SPLEENon 10-25-2024 US ABD SPLEEN * * *Final Report* * * DATE OF EXAM: Oct 25 2024 8:54AM [id number] - US ABD SPLEEN / PROCEDURE REASON: Splenomegaly Z87.898 * * * * Physician Interpretation * * * * US ABD SPLEEN INDICATION: Splenomegaly Z87.898 COMPARISON: No available comparisons. TECHNIQUE: US ABD SPLEEN RESULT: Spleen is enlarged measuring 14.4 cm in craniocaudal dimension. No lesions. IMPRESSION: Splenomegaly. Financial Analyst Accountant: WILL Transcribe Date/Time: Oct 27 2024 1:35P Dictated by : BEHZAD JOSÉ MD This examination was interpreted and the report reviewed and electronically signed by: BEHZAD JOSÉ MD on Oct 27 2024 1:36PM EST [id number] Normal [facility] US ABD RIGHT UPPER QUADRANTo n 09-11-2024 US ABD RIGHT UPPER QUADRANT * * *Final Report* * * DATE OF EXAM: Sep 11 2024 9:04AM [id number] - US ABD RIGHT UPPER QUADRANT / PROCEDURE REASON: K76.0 * * * * Physician Interpretation * * * * EXAMINATION: RIGHT UPPER QUADRANT ULTRASOUND CLINICAL HISTORY: Fatty liver TECHNIQUE: Sonography of the right upper quadrant was performed. Images were obtained and stored in a permanent archive and interpreted remotely. MQ: [id number] COMPARISON: None. RESULT: Pancreas: Normal sonographic appearance. Portions obscured: tail Liver: Measures 21.7 cm in craniocaudad dimension Echotexture: Normal, homogeneous. Echogenicity: Increased Surface contour: Smooth Lesions: None. Biliary: No intrahepatic biliary duct dilation. CBD: 0.4 cm at the hilum. Gallbladder: Normal caliber -Contents: No cholelithiasis -Wall: Normal -Other: No pericholecystic fluid. Right Kidney: Normal cortical echogenicity. No hydronephrosis. Ascites: None. IMPRESSION: Hepatic steatosis with associated mild hepatomegaly. Financial Analyst Accountant: WILL Transcribe Date/Time: Sep 11 2024 9:58A Dictated by : GREGORY MCMILLAN MD This examination was interpreted and the report reviewed and electronically signed by: GREGORY MCMILLAN MD on Sep 11 2024 9:59AM EST [id number] N Normal [facility] POLYSOMNOGRAM (PSG)/HOME SLE EP APNEA TEST (HSAT)on 06-22-2024 POLYSOMNOGRAM (PSG)/HOME SLEEP APNEA TEST (HSAT) [facility] at [address] [address] ; Home Sleep Apnea Test (HSAT) Study Report Name: EM SANZ Date of Study: 06/22/2024 [facility]#: [id number] Age: 39 (: 1985) ESS: 13 Neck Circ. (cm): N/A Height (cm): 185.4 Weight (kg): 181.4 BMI: 52.8 Referring Provider: TOÑITO TREVIÑO Mailcode: MADI Sleep history: The patient is a 39 year old male with a history of daytime sleepiness, fatigue, snoring, witnessed apneas, waking up choking, gasping, snorting, and multiple awakenings from sleep. The patient is here for assessment of obstructive sleep apnea . The patient endorses being a habitual side and prone sleeper. Past medical history: Anxiety, Bipolar, Type 2 diabetes mellitus, High cholesterol, Hypertension, Nicotine dependence, Fatty liver, Morbid obesity. Medications: Clonidine, Hydroxyzine, Buproprion, Lamotrigine, Divalproex, Metoprolol, Amlodipine, Metformin, Ozempic. Sleep procedure: PSG unattended Type III, minimum of 4 parameters (15251) Procedure: This study was performed using a Type III ambulatory PSG device and was unattended. The patient was instructed on proper use of the device by a registered cytotechnologist/histotechnologist. The monitored parameters included heart rate, oxygen saturation, continuous airflow with thermistor and nasal pressure transducer, snoring via nasal pressure transducer, chest and abdominal effort, and body position. FÉLIX definition: Respiratory event index (FÉLIX), calculated as respiratory events x 60 / TRT (total recording time in minutes). Note: the apnea hypopnea index has been replaced by the respiratory event index for home sleep apnea test. Since the home sleep apnea test does not measure sleep, the FÉLIX is most accurate index of respiratory events. The FÉLIX is a surrogate of the AHI per the AASM Manual for Scoring of Sleep and Associated Events version 2.6. Apnea definition: The peak signal excursions drop by >90% of pre-event baseline using an oronasal thermal sensor (diagnostic study), PAP device flow (titration study) or an alternative apnea sensor (diagnostic study). The duration of the >90% drop in signal excursion is >=10 seconds. Hypopnea definition: The peak signal excursions drop by >= 30% of pre-event baseline using nasal pressure (diagnostic study), PAP device flow (titration study) or an alternative hypopnea sensor (diagnostic study). The duration of the >= 30% drop in signal excursion is >=10 seconds. There is a greater than or equal to 4% oxygen desaturation from pre-event baseline. RESPIRATORY DATA: The study started at 00:44:38 and ended at 07:18:18 and the total recording time was 394 minutes. By convention, sleep is assumed for the whole recording. Snoring was noted. There was a total of 91 respiratory events. Of these events, the total number of apneas was 2 (1 obstructive, 0 mixed, and 1 central (1.1%)) and 89 hypopneas. The respiratory event index (FÉLIX) was 13.9 events per hour of study time. The mean oxygen saturation during the study was 92.0%, with a minimum oxygen saturation of 82.0%. The patient spent 50.8 minutes at oxygen saturation measured less than 90% (12.9% of recording time) and 7.3 minutes at oxygen saturation measured at or less than 88% (1.8% of recording time). Time FÉLIX/AHI Supine 5.0 min 0.0 Off-Supine 389.0 min 14.0 Total 394.0 min 13.9 ECG DATA: The average heart rate was 83 bpm with a range of 72 bpm to 102 bpm. ICSD DIAGNOSIS: Obstructive Sleep Apnea Syndrome [G47.33] IMPRESSION/RECOMMENDA TIONS: 1. This study confirms a diagnosis of at least mild obstructive sleep apnea. Minimum oxygen saturation was 82% 2. The results of this study may represent an underestimation of the degree of obstructive sleep apnea, especially hypopneas, because of the known limitations of HSAT, such as inability to record arousals because EEG is not recorded. 3. Morbid obesity. Recommend continued attempts at weight loss, exercise and conditioning. 4. Treatment of mild sleep apnea can include weight loss, positional therapy, treatment of allergies, oral appliance therapy or ENT evaluation of any airway abnormalities. PAP therapy may be considered in patients with documented symptoms of daytime sleepiness, impaired cognition, mood disorder, insomnia, or documented hypertension, ischemic heart disease, or history of stroke. WOuld consider a trial of CPAP for this patient. 5. Recommend maintaining consistent sleep and wake times, obtaining at least 7-8 hours of sleep per night, avoidance of alcohol, nicotine, and caffeine, and limiting activities in bed such as watching TV is recommended. Recommend avoidance of drowsy driving until the patient's sleep apnea has been addressed and treated. Data: Raw data meets the quality standard for accurate interpretation INTERPRETING PHYSICIAN: Kevin Levi D.O., FACOI, FCCP, FAA (more content not included)... Normal [facility] EXERCISE STRESS ECG (WITHOUT IMAGING)on 12-29-2023 Stress Assistant Boiler Operator Report: Exercise Stress ECG (without Imaging) [facility] Date of service: 12/29/2023 9:45:28 AM [facility] Supervising physician: Floyd Antonio MD PATIENT: Name: EM SANZ Age: 38 years Gender: M The supervising physician was in the department and immediately available. Final -------- Stress ECG Report: Exercise Stress ECG (without Imaging) [facility] Date of service: 12/29/2023 9:45:28 AM [facility] Ordering physician: SABA PROVIDER dairy management specialist: Jennifer Magdaleno Speedometer Inspector: Cornelia Smith RN Interpreting physician: Flody Antonio MD Patient name: EM SANZ Age: 38 years Gender: M Indication: Chest pressure / Chest tightness, Dyspnea on exertion and Encounter for screening for cardiovascular disorders Stress ECG Conclusion: Conclusion: Non-diagnostic due to inadequate HR response Stress ECG Summary: The patient's resting heart rate was 82 bpm and blood pressure was 145/85 mmHg. The patient exercised according to the Jesus protocol. The estimated end-exercise MET level achieved using the FRIEND equation was 6.4, which is in the bottom 10th percentile for age and sex. The estimated end-exercise MET level achieved using the previous ACSM equation was 7.5. The test was terminated due to end of protocol and the total exercise time was 6 minutes and 27 seconds. Other symptoms during the test included chest discomfort, SOB and leg fatigue. The maximum heart rate was 117 bpm, which is 65% of the predicted heart rate for age. This is an inadequate heart rate response. Peak blood pressure was 164/90 mmHg. The double product achieved was [address]. Previous cardiovascular interventions: Heart cath years ago in [place], per patient Medications: Last Used Amlodipine, Lisinopril, Metformin, Ozempic, Atorvastatin Resting ECG: Normal Sinus Rhythm and WNL Symptoms at rest: No symptoms Exercise Protocol: Jesus Stress Exercise Table: +-----+ +-- ------+ +--- +---+---+----+ Stage Speed (MPH) Grade(%) Time (min) HR SYS JOLEEN METS +-----+ +-- ------+ +--- +---+---+----+ 1 1.7 10.0 3.0 103 146 82 4.2 +-----+ +-- ------+ +--- +---+---+----+ 2 2.5 12.0 6.0 112 156 86 6.1 +-----+ +-- ------+ +--- +---+---+----+ +-----+ +-- -------+ +-- -+---+---+----+ Speed (MPH) Grade (%) Time (min) HR SYS JOLEEN METS +-----+ +-- -------+ +-- -+---+---+----+ Final 3.4 14.0 6.45 117 164 90 6.4 +-----+ +-- -------+ +-- -+---+---+----+ +------+--------+---- + Stage Symptoms Comments +------+--------+---- + 1 Chest sx. #0/0-10. No change in EKG. +------+--------+---- + 2 SOB Chest sx. #0/0-10. No change in EKG. +------+--------+---- + +-----+--------+----- + Symptoms Comments +-----+--------+----- + Final SOB Chest sx. #2/0-10. No change in EKG. +-----+--------+----- + Recovery Table: +------+---+---+---+ Stage HR SYS JOLEEN +------+---+---+---+ 1 110 160 92 +------+---+---+---+ 2 95 152 88 +------+---+---+---+ 3 91 144 84 +------+---+---+---+ +-----+ -+ + Stage Symptoms Comments +-----+ -+ + 1 SOB decreasing. Chest sx. #1/0-10. No change in EKG. +-----+ -+ + 2 SOB resolving. Chest sx. #0/0-10. No change in EKG. +-----+ -+ + 3 SOB resolved. Chest sx. #0/0-10. No change in EKG. +-----+ -+ + Stress Observations: Resting HR: 82 bpm Peak HR: 117 bpm (65% MPHR) Resting BP: 145 / 85 mmHg Peak BP: 164 / 90 mmHg Total exercise time: 6 minutes 27 seconds METS achieved: 6.4 Chronotropic response index (CRI): 0.35 Heart rate recovery (HRR): 7 bpm Rate Pressure Product (RPP): 53812 Zuniga Treadmill Score: -1.5 Stress Exercise Observations: Reason for test termination: end of protocol, Symptoms during test: Other symptoms during the test included chest discomfort, SOB and leg fatigue, Heart (more content not included)... [facility] EXERCISE STRESS ECG (WITHOUT IMAGING) Stress Assistant Boiler Operator Report: Exercise Stress ECG (without Imaging) [facility] Date of service: 12/29/2023 9:45:28 AM [facility] Supervising physician: Floyd Antonio MD PATIENT: Name: EM SANZ Age: 38 years Gender: M The supervising physician was in the department and immediately available. Final -------- Stress ECG Report: Exercise Stress ECG (without Imaging) [facility] Date of service: 12/29/2023 9:45:28 AM [facility] Ordering physician: SABA PROVIDER dairy management specialist: Jennifer Magdaleno Speedometer Inspector: Cornelia Smith RN Interpreting physician: Floyd Antonio MD Patient name: EM SANZ Age: 38 years Gender: M Indication: Chest pressure / Chest tightness, Dyspnea on exertion and Encounter for screening for cardiovascular disorders Stress ECG Conclusion: Conclusion: Non-diagnostic due to inadequate HR response Stress ECG Summary: The patient's resting heart rate was 82 bpm and blood pressure was 145/85 mmHg. The patient exercised according to the Jesus protocol. The estimated end-exercise MET level achieved using the FRIEND equation was 6.4, which is in the bottom 10th percentile for age and sex. The estimated end-exercise MET level achieved using the previous ACSM equation was 7.5. The test was terminated due to end of protocol and the total exercise time was 6 minutes and 27 seconds. Other symptoms during the test included chest discomfort, SOB and leg fatigue. The maximum heart rate was 117 bpm, which is 65% of the predicted heart rate for age. This is an inadequate heart rate response. Peak blood pressure was 164/90 mmHg. The double product achieved was 16212. Previous cardiovascular interventions: Heart cath years ago in [place], per patient Medications: Last Used Amlodipine, Lisinopril, Metformin, Ozempic, Atorvastatin Resting ECG: Normal Sinus Rhythm and WNL Symptoms at rest: No symptoms Exercise Protocol: Jesus Stress Exercise Table: +-----+ +-- ------+ +--- +---+---+----+ Stage Speed (MPH) Grade(%) Time (min) HR SYS JOLEEN METS +-----+ +-- ------+ +--- +---+---+----+ 1 1.7 10.0 3.0 103 146 82 4.2 +-----+ +-- ------+ +--- +---+---+----+ 2 2.5 12.0 6.0 112 156 86 6.1 +-----+ +-- ------+ +--- +---+---+----+ +-----+ +-- -------+ +-- -+---+---+----+ Speed (MPH) Grade (%) Time (min) HR SYS JOLEEN METS +-----+ +-- -------+ +-- -+---+---+----+ Final 3.4 14.0 6.45 117 164 90 6.4 +-----+ +-- -------+ +-- -+---+---+----+ +------+--------+---- + Stage Symptoms Comments +------+--------+---- + 1 Chest sx. #0/0-10. No change in EKG. +------+--------+---- + 2 SOB Chest sx. #0/0-10. No change in EKG. +------+--------+---- + +-----+--------+----- + Symptoms Comments +-----+--------+----- + Final SOB Chest sx. #2/0-10. No change in EKG. +-----+--------+----- + Recovery Table: +------+---+---+---+ Stage HR SYS JOLEEN +------+---+---+---+ 1 110 160 92 +------+---+---+---+ 2 95 152 88 +------+---+---+---+ 3 91 144 84 +------+---+---+---+ +-----+ -+ + Stage Symptoms Comments +-----+ -+ + 1 SOB decreasing. Chest sx. #1/0-10. No change in EKG. +-----+ -+ + 2 SOB resolving. Chest sx. #0/0-10. No change in EKG. +-----+ -+ + 3 SOB resolved. Chest sx. #0/0-10. No change in EKG. +-----+ -+ + Stress Observations: Resting HR: 82 bpm Peak HR: 117 bpm (65% MPHR) Resting BP: 145 / 85 mmHg Peak BP: 164 / 90 mmHg Total exercise time: 6 minutes 27 seconds METS achieved: 6.4 Chronotropic response index (CRI): 0.35 Heart rate recovery (HRR): 7 bpm Rate Pressure Product (RPP): 98542 Zuniga Treadmill Score: -1.5 Stress Exercise Observations: Reason for test termination: end of protocol, Symptoms during test: Other symptoms during the test included chest discomfort, SOB and leg fatigue, Heart rate response: Inadequate heart rate response, Blood pressure response: Normal BP response, ST segment and T wave changes: No ST changes, Zuniga Treadmill Score: Abnormal Zuniga Treadmill Score (<5 but >= -10) and Arrhythmias: No arrhythmias Comments: Patient exercised 6:27 of Jesus protocol. Patient d (more content not included)... Normal [facility] Absolute lymphocyte countOrd ered By: Ladarius Perales on 06-30-2023 Lymphocytes Auto (Unsp spec) [#/Vol] 1.79 10*3/uL 0.83-4.51 [facility] Automated lymphocyte count a s percentage of total leukocytesOrdered By: Ladarius Perales on 06-30-2023 Lymphocytes/100 WBC Auto (Unsp spec) 28.6 % 19-41 [facility] Basophil percentageOrdered B y: Ladarius Perales on 06-30-2023 Basophil percentage 0-5 SEEN /hpf 0-5 [facility] Basophils/100 WBC (Bld) 0.6 % 0-1 [facility] Bilirubin [Mass/Vol] 0.50 mg/dL 0.20-1.00 [facility] Comment on above: For patients on eltr ombopag therapy, use of Dimension [place] TBIL is not recommended. Chloride [Moles/Vol] 107 mmol/L 98-107 [facility] Eosinophils/100 WBC (Bld) 7.3 % 0-5 [facility] Glucose [Mass/Vol] 131 mg/dL 74-106 [facility] Comment on above: Fasting Glucose resu lt greater than or equal to 126 mg/dL suggests DIABETES MELLITUS per A.D.A. criteria. Hemoglobin (Bld) [Mass/Vol] 16.9 g/dL 13.0-16.5 [facility] Monocytes/100 WBC (Bld) 10.2 % 0-10 [facility] Neutrophils (Bld) [#/Vol] 3.3 10*3/uL 2.0-7.7 [facility] Neutrophils/100 WBC (Bld) 52.8 % 47-70 [facility] Potassium [Moles/Vol] 4.1 mmol/L 3.5-5.1 [facility] Comment on above: Slight Hemolysis, Re sult may be falsely increased. Protein [Mass/Vol] 7.2 g/dL 6.4-8.2 [facility] Sodium [Moles/Vol] 138 mmol/L 136-145 [facility] WBC (Bld) [#/Vol] 6.3 10*3/uL 4.4-11.0 [facility] Bilirubin Test strip Ql (U)O rdered By: Ladarius Perales on 06-30-2023 Bilirubin Ql (U) Negative Negative [facility] Determination of erythrocyte mean corpuscular volume (MCV)Ordered By: Ladarius Perales on 06-30-2023 MCV (RBC) [Entitic vol] 80.0 fL 80-94 [facility] Erythrocyte distribution wid th ratioOrdered By: Ladarius Perales on 06-30-2023 Erythrocyte distribution width (RBC) [Ratio] 13.3 % 11.6-14.6 [facility] Erythrocyte distribution wid th standard deviationOrdered By: Ladariusadriana Perales on 06-30-2023 Erythrocyte distribution width (RBC) [Entitic vol] 38.5 fL 35.1-43.9 [facility] Hematocrit Auto (Bld) [Volum e fraction]Ordered By: Ladarius Perales on 06-30-2023 Hematocrit (Bld) [Volume fraction] 50.3 % 40-54 [facility] Immature granulocytes/100 WB C Auto (Bld)Ordered By: Ladariusadriana Perales on 06-30-2023 Immature granulocytes/100 WBC (Bld) 0.500 % 0.0-0.9 [facility] Comment on above: IG% - Immature Granu locytes (promyelocytes, myelocytes and metamyelocytes) > 1% indicates that a LEFT SHIFT is Present. Ketones Test strip Ql (U)Ord ered By: Ladarius Perales on 06-30-2023 Ketones Ql (U) 5 mg/dl Negative [facility] Laboratory - Chemistry and C hemistry - challengeOrdered By: Ladarius Perales on 06-30-2023 Albumin/Globulin [Mass ratio] 1.3 {ratio} 0.9-2.4 [facility] ALP [Catalytic activity/Vol] 94 U/L 45-117 [facility] ALT [Catalytic activity/Vol] 45 U/L 16-61 [facility] CO2 [Moles/Vol] 26.0 mmol/L 21.0-32.0 [facility] Globulin (S) [Mass/Vol] 3.1 g/dL 2.2-4.2 [facility] Urea nitrogen/Creatinine [Mass ratio] 8.3 mg/mg 10-20 [facility] Laboratory - Hematology and Cell countsOrdered By: Ladarius Perales on 06-30-2023 MCH (RBC) [Entitic mass] 26.9 pg 27.0-32.0 [facility] MCHC (RBC) [Mass/Vol] 33.6 g/dL 32-36 [facility] Nucleated RBC/100 WBC (Bld) [Ratio] 0 % 0-5 [facility] Platelet mean volume (Bld) [Entitic vol] 9.6 fL 6.2-12.0 [facility] Platelets (Bld) [#/Vol] 202 10*3/uL 150-450 [facility] Mucus LM Ql (Urine sed)Order ed By: Ladarius Perales on 06-30-2023 Mucus Ql (Urine sed) 2+ /hpf [facility] Nitrite Test strip Ql (U)Ord ered By: Ladarius Perales on 06-30-2023 Nitrite Ql (U) Negative Negative [facility] No Panel InformationOrdered By: Ladarius Perales on 06-30-2023 Urine RBC 0-5 SEEN /hpf 0-5 [facility] Estimated GFR (MDRD) Amer 112 mL/min >60 [facility] Comment on above: GFR Calc Estimated GFR (MDRD) Non-Af Amer 93 mL/min >60 [facility] Comment on above: Non- GFR Calc Protein Test strip Ql (U)Ord ered By: Ladarius Perales on 06-30-2023 Protein Ql (U) 30 mg/dl Negative [facility] RBC Auto (Bld) [#/Vol]Ordere d By: Ladarius Perales on 06-30-2023 RBC (Bld) [#/Vol] 6.29 10*6/uL 4.6-6.2 [facility] Serum or plasma calcium odilon urement (mass/volume)Ordered By: Ladarius Perales on 06-30-2023 Calcium [Mass/Vol] 8.9 mg/dL 8.5-10.1 [facility] r [facility] Serum or plasma creatinine m easurement (mass/volume)Ordered By: Ladarius Perales on 06-30-2023 Creatinine [Mass/Vol] 0.96 mg/dL 0.70-1.30 [facility] Comment on above: The validity of the calculated GFR & GFRAA in patients over 70 years has not been determined. Clinical correlation is essential. Serum or plasma urea nitroge n measurement (mass/volume)Ordered By: Ladarius Perales on 06-30-2023 Urea nitrogen [Mass/Vol] 8 mg/dL 7-18 [facility] Squamous epithelial cells de tection in urine sediment by light microscopyOrdered By: Ladarius Perales on 06-30-2023 Epithelial cells.squamous LM Ql (Urine sed) 0-5 SEEN /hpf 0-5 [facility] Thin prep Papanicolaou smear with manual screeningOrdered By: Ladarius Perales on 06-30-2023 Thin prep Papanicolaou smear with manual screening 4.1 g/dL 3.2-5.0 [facility] Thin prep Papanicolaou smear with manual screening 48 U/L 15-37 [facility] Comment on above: Slight Hemolysis, Re sult may be falsely increased. Thin prep Papanicolaou smear with manual screening 5 5-15 [facility] Urine blood detectionOrdered By: Ladarius Perales on 06-30-2023 RBC Ql (U) 10 /ul Negative [facility] Urine clarityOrdered By: Reyna Perales on 06-30-2023 Clarity (U) Sl. Cloudy Clear [facility] Urine color determinationOrd ered By: Ladarius Perales on 06-30-2023 Color (U) Yellow Yellow [facility] Urine glucose detectionOrder ed By: Ladarius Perales on 06-30-2023 Glucose Ql (U) Normal mg/dl Normal [facility] Urine leukocyte esterase det ection by dipstickOrdered By: Ladarius Perales on 06-30-2023 Leukocyte esterase Test strip Ql (U) 25 /ul Negative [facility] Urine pHOrdered By: Ladarius Perales on 06-30-2023 pH (U) 5.0 [pH] 5.0 - 8.0 [facility] Urine sediment bacteria coun t by microscopy (number/high power field)Ordered By: Ladarius Perales on 06-30-2023 Bacteria LM.HPF (Urine sed) [#/Area] 0 /[HPF] None Seen [facility] Urine specific gravity measu rementOrdered By: Ladarius Perales on 06-30-2023 Specific gravity (U) [Rel density] 1.030 1.002-1.030 [facility] Urine urobilinogen measureme ntOrdered By: Ladarius Perales on 06-30-2023 Urobilinogen Ql (U) Normal mg/dl Normal [facility] INFLUENZA A&B MOLECULAR (POC )on 09-24-2022 Flu A (POCT) Negative Negative [facility] Flu B (POCT) Negative Negative [facility] Procedural Control Valid [facility] STREP A MOLECULAR (POC)on Procedural Control Valid [facility] Strep A (POCT) Negative Negative [facility] XR CHEST 2V FRONTAL/LATon [facility] XR Chest PA and Lateralon IMPRESSION: No acute radiographic abnormality. Financial Analyst Accountant: WILL Transcribe Date/Time: Sep 24 2022 12:41P Dictated by : CHRISTOPHE GALLARDO MD This examination was interpreted and the report reviewed and electronically signed by: CHRISTOPHE GALLARDO MD on Sep 24 2022 12:42PM [facility] DIVISION OF RADIOLOGY * * *Final Report* * * DATE OF EXAM: Sep 24 2022 12:40PM WOX [id number] - XR CHEST 2V FRONTAL/LAT / PROCEDURE REASON: Acute cough * * * * Physician Interpretation * * * * EXAMINATION: CHEST RADIOGRAPH (2 VIEW FRONTAL & LATERAL) CLINICAL HISTORY: Acute cough MQ: XC2_6 EXAM DATE/TIME: 09/24/2022 12:40 PM COMPARISON: No relevant prior studies available. RESULT: Lines, tubes, and devices: None. Lungs and pleura: No consolidation. No lung mass. No pleural effusion. No pneumothorax. Cardiomediastinal silhouette: Normal cardiomediastinal silhouette. Bones and soft tissues: There are degenerative changes in the spine. DIVISION OF RADIOLOGY Provider, Margaux Luis Aguilera - 09/24/2022 * * *Final Report* * * DATE OF EXAM: Sep 24 2022 12:40PM WOX [id number] - XR CHEST 2V FRONTAL/LAT / PROCEDURE REASON: Acute cough * * * * Physician Interpretation * * * * EXAMINATION: CHEST RADIOGRAPH (2 VIEW FRONTAL & LATERAL) CLINICAL HISTORY: Acute cough MQ: XC2_6 EXAM DATE/TIME: 09/24/2022 12:40 PM COMPARISON: No relevant prior studies available. RESULT: Lines, tubes, and devices: None. Lungs and pleura: No consolidation. No lung mass. No pleural effusion. No pneumothorax. Cardiomediastinal silhouette: Normal cardiomediastinal silhouette. Bones and soft tissues: There are degenerative changes in the spine. IMPRESSION IMPRESSION: No acute radiographic abnormality. Financial Analyst Accountant: PSCB Transcribe Date/Time: Sep 24 2022 12:41P Dictated by : CHRISTOPHE GALLARDO MD This examination was interpreted and the report reviewed and electronically signed by: CHRISTOPHE GALLARDO MD on Sep 24 2022 12:42PM EST [facility] Radiology Study observation (narrative) [facility] XR Chest PA and LateralOrder ed By: [facility] Provider on 09-24-2022 [facility] Progress Noteon 06-04-2022 Progress Note Left voicemail for patient to call office to schedule routine office visit. If the patient returns the call, please assist in scheduling an appointment within the next 30 days. Normal [facility] Tobacco Screening.on 023 Adult depression screening assessment No [facility] Work Phone: Fall risk assessment a) No falls within the last year [facility] Work Phone: Tobacco use status [facility] b) No [facility] Work Phone: US ABDOMEN LIMITED Specify o rgan? LIVEROrdered By: Cate Reyes on 01-16-2021 Patient Name: EM SANZ Ultrasound ACCESSION EXAM DATE/TIME PROCEDURE ORDERING PROVIDER [id number] 01/16/2021 10:26 EDT US Abdomen Limited MD AMY, CATE CPT code 03131 Reason For Exam (US Abdomen Limited) high bilirubin Report ULTRASOUND RIGHT UPPER QUADRANT CLINICAL INDICATION: Elevated LFTs TECHNIQUE: Ultrasound of the right upper quadrant COMPARISON: None FINDINGS: Liver: Generalized increased hepatic echogenicity corresponding to hepatic steatosis. Increased size (21.6 cm). Normal contour. No focal lesion identified. Gallbladder: Normal. No pericholecystic inflammatory change. Negative sonographic Anand sign reported by the cytotechnologist/histotechnologist. Bile ducts: No intrahepatic and extrahepatic biliary dilatation Common bile duct: 3.5 mm Pancreas: Visualized portions of the head, body, and tail are normal. Right kidney: Normal parenchymal echogenicity without a solid mass or hydronephrosis. No cortical cysts. Dimensions: 13.5 x 5.4 x 6.8 cm Aorta and Inferior vena cava: Visualized portions are normal Ascites: None IMPRESSION: 1. Generalized increased hepatic echogenicity corresponding to hepatic steatosis. 2. Hepatomegaly (21.6 cm). Report Dictated on --- Final --- Dictated: 01/16/2021 10:48 am Dictating Physician: MD JAIMES JASON Signed Date and Time: 01/16/2021 10:49 am Signed by: MD JAIMES JASON Transcribed Date and Time: 01/16/2021 10:48 [facility] Work Phone: Natana[facility], [facility] Incoming Radiology Results From [facility] - 01/16/2021 10:51 AM EDT Patient Name: EM SANZ Ultrasound ACCESSION EXAM DATE/TIME PROCEDURE ORDERING PROVIDER [id number] 01/16/2021 10:26 EDT US Abdomen Limited MD REYES YAN CPT code 31335 Reason For Exam (US Abdomen Limited) high bilirubin Report ULTRASOUND RIGHT UPPER QUADRANT CLINICAL INDICATION: Elevated LFTs TECHNIQUE: Ultrasound of the right upper quadrant COMPARISON: None FINDINGS: Liver: Generalized increased hepatic echogenicity corresponding to hepatic steatosis. Increased size (21.6 cm). Normal contour. No focal lesion identified. Gallbladder: Normal. No pericholecystic inflammatory change. Negative sonographic Anand sign reported by the cytotechnologist/histotechnologist. Bile ducts: No intrahepatic and extrahepatic biliary dilatation Common bile duct: 3.5 mm Pancreas: Visualized portions of the head, body, and tail are normal. Right kidney: Normal parenchymal echogenicity without a solid mass or hydronephrosis. No cortical cysts. Dimensions: 13.5 x 5.4 x 6.8 cm Aorta and Inferior vena cava: Visualized portions are normal Ascites: None IMPRESSION: 1. Generalized increased hepatic echogenicity corresponding to hepatic steatosis. 2. Hepatomegaly (21.6 cm). Report Dictated on --- Final --- Dictated: 01/16/2021 10:48 am Dictating Physician: MD JAIMES JASON Signed Date and Time: 01/16/2021 10:49 am Signed by: MD JAIMES JASON Transcribed Date and Time: 01/16/2021 10:48 [facility] Work Phone: [facility] Work Phone: US Abdomen Limitedon 021 US Abdomen Limited Patient Name: EM SANZ Ultrasound ACCESSION EXAM DATE/TIME PROCEDURE ORDERING PROVIDER [id number] 01/16/2021 10:26 EDT US Abdomen Limited MD REYES YAN CPT code 70089 Reason For Exam (US Abdomen Limited) high bilirubin Report ULTRASOUND RIGHT UPPER QUADRANT CLINICAL INDICATION: Elevated LFTs TECHNIQUE: Ultrasound of the right upper quadrant COMPARISON: None FINDINGS: Liver: Generalized increased hepatic echogenicity corresponding to hepatic steatosis. Increased size (21.6 cm). Normal contour. No focal lesion identified. Gallbladder: Normal. No pericholecystic inflammatory change. Negative sonographic Anand sign reported by the cytotechnologist/histotechnologist. Bile ducts: No intrahepatic and extrahepatic biliary dilatation Common bile duct: 3.5 mm Pancreas: Visualized portions of the head, body, and tail are normal. Right kidney: Normal parenchymal echogenicity without a solid mass or hydronephrosis. No cortical cysts. Dimensions: 13.5 x 5.4 x 6.8 cm Aorta and Inferior vena cava: Visualized portions are normal Ascites: None IMPRESSION: 1. Generalized increased hepatic echogenicity corresponding to hepatic steatosis. 2. Hepatomegaly (21.6 cm). Report Dictated on Final Dictated: 01/16/2021 10:48 am Dictating Physician: MD JAIMES JASON Signed Date and Time: 01/16/2021 10:49 am Signed by: MD JAIMES JASON Transcribed Date and Time: 01/16/2021 10:48 Normal [facility] Vital Signs Date Time Vital Sign Value Performing Clinician Facility 11-07-2024 15:32-0400 Body temperature 97.6 [degF] Dr. Servando Mccoy DO Work Phone: [facility] 11-07-2024 15:32-0400 Diastolic blood pressure 74 mm[Hg] Dr. Servando Pool Work Phone: [facility] 11-07-2024 15:32-0400 Heart rate 82 /min Dr. Servando Pool Work Phone: [facility] 11-07-2024 15:32-0400 Respiratory rate 20 /min Dr. Servando Mccoy DO Work Phone: [facility] 11-07-2024 15:32-0400 SaO2% (BldA) [Mass fraction] 97 % Dr. Servando Pool Work Phone: [facility] 11-07-2024 15:32-0400 Systolic blood pressure 145 mm[Hg] Dr. Servando Pool Work Phone: [facility] 11-07-2024 13:55-0400 Body height 185.[address] Servando Pool Work Phone: [facility] 06-30-2023 19:08-0400 Body temperature 97.7 [degF] [facility] 06-30-2023 19:08-0400 Diastolic blood pressure 77 mm[Hg] [facility] 06-30-2023 19:08-0400 Heart rate 79 /min [facility] 06-30-2023 19:08-0400 Respiratory rate 18 /min [facility] 06-30-2023 19:08-0400 SaO2% (BldA) [Mass fraction] 97 % [facility] 06-30-2023 19:08-0400 Systolic blood pressure 146 mm[Hg] [facility] 06-30-2023 15:08-0400 Body height 185.42 cm [facility] 06-30-2023 14:34-0400 Body temperature 98.49 [degF] Sandy Clement APRN.COPY OPERATOR Work Phone: [facility] 06-30-2023 14:34-0400 Body weight 182.2 kg Sandy Clement FUR MIXER OPERATOR.COPY OPERATOR Work Phone: [facility] 06-30-2023 14:34-0400 Diastolic blood pressure 82 mm[Hg] Sandy Clement FUR MIXER OPERATOR.COPY OPERATOR Work Phone: [facility] 06-30-2023 14:34-0400 Heart rate 92 /min Sandy Clement FUR MIXER OPERATOR.COPY OPERATOR Work Phone: [facility] 06-30-2023 14:34-0400 Respiratory rate 16 /min Sandy Clement FUR MIXER OPERATOR.COPY OPERATOR Work Phone: [facility] 06-30-2023 14:34-0400 SaO2% (BldA) [Mass fraction] 97 % Sandy Clement FUR MIXER OPERATOR.COPY OPERATOR Work Phone: [facility] 06-30-2023 14:34-0400 Systolic blood pressure 146 mm[Hg] Sandy Clement FUR MIXER OPERATOR.COPY OPERATOR Work Phone: [facility] 09-24-2022 11:01-0400 Body temperature 102.2 [degF] Simeon David FUR MIXER OPERATOR.COPY OPERATOR Work Phone: [facility] 09-24-2022 11:01-0400 Body weight 189.88 kg Simoen David FUR MIXER OPERATOR.COPY OPERATOR Work Phone: [facility] 09-24-2022 11:01-0400 Diastolic blood pressure 82 mm[Hg] Simeon David FUR MIXER OPERATOR.COPY OPERATOR Work Phone: [facility] 09-24-2022 11:01-0400 Heart rate 109 /min Simeon David FUR MIXER OPERATOR.COPY OPERATOR Work Phone: [facility] 09-24-2022 11:01-0400 Respiratory rate 26 /min Simeon David FUR MIXER OPERATOR.COPY OPERATOR Work Phone: [facility] 09-24-2022 11:01-0400 SaO2% (BldA) [Mass fraction] 94 % Simeon David FUR MIXER OPERATOR.COPY OPERATOR Work Phone: [facility] 09-24-2022 11:01-0400 Systolic blood pressure 124 mm[Hg] Simeon Hernandez APRN.CNP Work Phone: [facility] 06-09-2022 10:29-0400 Body height 185.4 cm Roxana Deo PA-C Work Phone: [facility] 06-09-2022 10:29-0400 Body weight 183.75 kg Roxana Deo PA-C Work Phone: [facility] 06-09-2022 10:29-0400 Diastolic blood pressure 92 mm[Hg] Roxana Deo PA-C Work Phone: [facility] 06-09-2022 10:29-0400 Heart rate 78 /min Roxana Deo PA-C Work Phone: [facility] 06-09-2022 10:29-0400 Systolic blood pressure 158 mm[Hg] Roxana Deo PA-C Work Phone: [facility] 05-08-2022 15:38-0500 Body height 185.42 cm Jeff Dooley PA-C Work Phone: [facility] Work Phone: 05-08-2022 15:38-0500 Body mass index (BMI) [Ratio] 55.41 kg/m2 Jeff Dooley PA-C Work Phone: [facility] Work Phone: 05-08-2022 15:38-0500 Body surface area Derived from formula 2.95 m2 Jeff Dooley PA-C Work Phone: [facility] Work Phone: 05-08-2022 15:38-0500 Body temperature 97.3 [degF] Jeff Dooley PA-C Work Phone: [facility] Work Phone: 05-08-2022 15:38-0500 Body weight 190.51 kg Jeff Dooley PA-C Work Phone: [facility] Work Phone: 05-08-2022 15:38-0500 Diastolic blood pressure 81 mm[Hg] Jeff Dooley PA-C Work Phone: [facility] Work Phone: 05-08-2022 15:38-0500 Heart rate 94 /min Jeff Dooley PA-C Work Phone: [facility] Work Phone: 05-08-2022 15:38-0500 Respiratory rate 20 /min Jeff Dooley PA-C Work Phone: [facility] Work Phone: 05-08-2022 15:38-0500 SaO2% (BldA) [Mass fraction] 98 % Jeff Dooley PA-C Work Phone: [facility] Work Phone: 05-08-2022 15:38-0500 Systolic blood pressure 148 mm[Hg] Jeff Dooley PA-C Work Phone: [facility] Work Phone: 05-08-2022 15:38-0500 7 1 Jeff Dooley PA-C [facility] Work Phone: Comment on above: [facility] 09-09-2020 07:57-0400 Body height 185.4 cm Davion Adam MD Work Phone: [facility] Work Phone: 09-09-2020 07:57-0400 Body mass index (BMI) [Ratio] 56.86 kg/m2 Davion Adam MD Work Phone: [facility] Work Phone: 09-09-2020 07:57-0400 Body weight 195.5 kg Davion Adam MD Work Phone: [facility] Work Phone: 06-18-2020 14:39-0400 Body Temperature 97.9 [degF] [facility] 06-18-2020 14:39-0400 Body weight 208.2 kg [facility] 06-18-2020 14:39-0400 BP Diastolic 110 mm[Hg] [facility] 06-18-2020 14:39-0400 BP Systolic 160 mm[Hg] [facility] 06-18-2020 14:39-0400 Height 185.4 cm [facility] 06-18-2020 14:39-0400 Pulse (Heart Rate) 101 /min [facility] 06-18-2020 14:39-0400 Pulse Oximetry 98 % [facility] Encounters Encounter Date Encounter Type Care Provider Facility Start: 11-07-2024 End: 11-07-2024 Emergency department patient visit Dr. Servando Pool Work Phone: -Emergency Department Work Phone: Start: 10-25-2024 ambulatory NINA Lau MARTIN Facility :[facility] Start: 10-25-2024 End: 10-25-2024 Subsequent hospital visit by physician [facility] Work Phone: Radiology Comment on above: Personal history of other specified conditions [Z87.898] Start: 09-11-2024 ambulatory NINA Lau MARTIN Facility :[facility] Start: 09-11-2024 End: 09-11-2024 Subsequent hospital visit by physician [facility] Work Phone: Radiology Comment on above: Fatty (change of) li pura, not elsewhere classified [K76.0] Start: 06-20-2024 End: 06-21-2024 Chart abstracting Nina Murray COPY OPERATOR Work Phone: [facility] Comment on above: Polysomnogram Start: 12-29-2023 ambulatory TOÑITO EISENHART Facilit y:[facility] Start: 12-29-2023 End: 12-29-2023 Subsequent hospital visit by physician Card Lab Nuc 2 [facility] Comment on above: Old myocardial infar ction [I25.2] Start: 10-24-2023 Chart abstracting Toñito maya COPY OPERATOR Work Phone: [facility] Comment on above: Polysomnogram Start: 06-30-2023 End: 06-30-2023 Emergency department patient visit [facility]Emergency Department Work Phone: Start: 06-30-2023 End: 06-30-2023 Patient encounter procedure Sandy Clement FUR MIXER OPERATOR.COPY OPERATOR Work Phone: [facility] Comment on above: Generalized abdomina l pain (Primary Dx); Urinary retention Start: 09-24-2022 Telephone encounter Simeon asencio APRN.COPY OPERATOR Work Phone: [facility] Comment on above: Results Start: 09-24-2022 End: 09-24-2022 Subsequent hospital visit by physician [facility] Work Phone: Radiology Comment on above: Acute cough [R05.1] Start: 09-24-2022 End: 09-24-2022 Patient encounter procedure Simeon Hernandez APRN.COPY OPERATOR Work Phone: [facility] Comment on above: Suspected COVID-19 v irus infection (Primary Dx); Sore throat; Flu-like symptoms; Acute cough Start: 06-16-2022 Telephone encounter Roxana Desouza PA-C Work Phone: [facility] Comment on above: Medication Problem Start: 06-09-2022 End: 06-09-2022 Patient encounter procedure Roxana Desouza PA-C Work Phone: [facility] Comment on above: Hemorrhoids, unspeci fied hemorrhoid type (Primary Dx); Constipation, unspecified constipation type Start: 05-08-2022 ambulatory Provider Pending Facili ty:[id number] Start: 05-08-2022 Office outpatient ne w 30 minutes Jeff Dooley PA-C Work Phone: [facility] Work Phone: Start: 01-16-2021 End: 01-16-2021 Subsequent hospital visit by physician Cate Reyes MD Work Phone: [facility] Comment on above: Abnormal liver funct ion test Start: 09-09-2020 End: 09-09-2020 Subsequent hospital visit by physician Davion Adam MD Work Phone: [facility] Comment on above: Shortness of breath; VICKY on CPAP Start: 06-18-2020 End: 06-18-2020 Patient encounter procedure Tian Williamson Work Phone: Internal Medicine [facility] Comment on above: Sarcoidosis (Primary Dx); Type 2 diabetes mellitus with hyperglycemia, with long-term current use of insulin (HCC); Essential hypertension; Mixed hyperlipidemia Procedures Date Procedure Procedure Detail Performing Clinician Start: 12-29-2023 Cv strs tst xers&/or rx cont ecg trcg only [facility] Provider Start: 06-30-2023 X-ray of chest posteroanterior view Start: 09-24-2022 Radiologic exam ches t 2 views Simeon Hernandez APRN.COPY OPERATOR Work Phone: Start: 09-24-2022 INFLUENZA A&B MOLECU LAR (POC) Simeon Hernandez FUR MIXER OPERATOR.COPY OPERATOR Work Phone: Start: 09-24-2022 STREP A MOLECULAR (POC) Suly Lo APRN.COPY OPERATOR Work Phone: Start: 01-16-2021 Us abdominal real ti me w/image limited Cate Reyes MD Work Phone: Start: 01-09-2021 Lipid 1996 panel - S priscila or Plasma Sandy Clement FUR MIXER OPERATOR.COPY OPERATOR Work Phone: Start: 09-09-2020 Brncdilat rspse spmt ry pre&post-brncdilat admn Davion Adam MD Work Phone: Plan of Treatment Date Care Activity Detail Author Start: 08-30-2034 Urine microalbumin profile DTaP,Tdap,Td Vaccine (2 - Td or Tdap) [facility] Start: 01-09-2026 Lipid panel Lipid Screening [facility] Start: 11-26-2024 Influenza vaccination [facility] Start: 11-07-2024 [facility] Start: 12-29-2023 End: 12-29-2023 Patient encounter procedure 12/29/2023 9:00 AM EDT Appointment [facility] [address] [place] [address] Old myocardial infarction [I25.2] [facility] Comment on above: Old myocardial infarction [I25.2] Start: 11-27-2023 Covid-19 Vaccine ( season) Covid-19 Vaccine ( season) [facility] Start: 11-27-2023 Covid-19 Vaccine ( season) Covid-19 Vaccine ( season) [facility] Start: 11-27-2023 Influenza vaccination Influenza Vaccine (#1) [facility] Start: 06-30-2023 Chlamydia deoxyribonucleic acid detection [facility] Start: 06-30-2023 [facility] Start: 03-28-2023 Behavioral Health Screening Behavioral Health Screening [facility] Start: 11-26-2022 Covid-19 Vaccine ( season) Covid-19 Vaccine ( season) [facility] Start: 11-26-2022 Influenza vaccination INFLUENZA (Season Ended) [facility] Start: 03-28-2022 DEPRESSION ASSESSMENT DEPRESSION ASSESSMENT [facility] Start: 01-09-2022 Creatinine measurement Creatinine monitoring [facility] Work Phone: Start: 01-09-2022 Hemoglobin A1c measurement A1C test (Diabetic or Prediabetic) [facility] Work Phone: Start: 01-09-2022 Lipid panel Lipid screen [facility] Work Phone: Start: 01-09-2022 Potassium monitoring Potassium monitoring [facility] Work Phone: Start: 11-26-2021 Influenza vaccination INFLUENZA (#1) [facility] Start: 06-20-2021 3 comp foot exam completed DIABETIC FOOT EXAM [facility] Start: 06-18-2021 ANNUAL PCP TEAM CHRONIC DISEASE VISIT ANNUAL PCP TEAM CHRONIC DISEASE VISIT [facility] Start: 04-16-2021 End: 04-16-2021 Patient encounter procedure 04/16/2021 Office Visit Internal Medicine Cate Reyes MD [address] [place] [address] [phone] [facility] Start: 04-11-2021 Hemoglobin A1c/Hemoglobin.total in Blood HBA1C [facility] Start: 12-03-2020 End: 12-03-2020 Patient encounter procedure 12/03/2020 Office Visit Pulmonology Davion Adam MD [address] [place], [place] [id number] [facility] Start: 11-26-2020 Influenza vaccination [facility] Work Phone: Start: 10-13-2020 COVID-19 VACCINE (2 - Booster for Moderna series) COVID-19 VACCINE (2 - Booster for Moderna series) [facility] Start: 09-15-2020 COVID-19 Vaccine (2 - Moderna 2-dose series) COVID-19 Vaccine (2 - Moderna 2-dose series) [facility] Work Phone: Start: 09-15-2020 COVID-19 VACCINE (2 - Moderna series) COVID-19 VACCINE (2 - Moderna series) [facility] Start: 09-11-2020 End: 09-11-2020 Patient encounter procedure 09/11/2020 Office Visit Pulmonology Yosvany Braxton MD [address] [place], [place] [id number] [facility] Start: 2020 LIPID SCREEN LIPID SCREEN [facility] Start: 11-27-2019 Influenza vaccination INFLUENZA (#1) [facility] Start: 2004 DTaP/Tdap/Td vaccine (1 - Tdap) DTaP/Tdap/Td vaccine (1 - Tdap) [facility] Work Phone: Start: 2004 Hepatitis B Vaccine (1 of 3 - 19+ 3-dose series) Hepatitis B Vaccine (1 of 3 - 19+ 3-dose series) [facility] Start: 2004 Hepatitis B vaccine (1 of 3 - Risk 3-dose series) Hepatitis B vaccine (1 of 3 - Risk 3-dose series) [facility] Work Phone: Start: 2004 Urine microalbumin profile [facility] Start: 2003 Anxiety Screening Anxiety Screening [facility] Start: 2003 Depression Screening Depression Screening [facility] Start: 2003 Diabetic microalbuminuria test Diabetic microalbuminuria test [facility] Work Phone: Start: 2003 Hepatitis B surface antibody level LDL CHOLESTEROL [facility] Start: 2003 HEPATITIS C SCREENING HEPATITIS C SCREENING [facility] Start: 2003 Hepatitis C screening Hepatitis C Screening [facility] Start: 2003 HIV SCREENING HIV SCREENING [facility] Start: 2003 HIV screening HIV Screening [facility] Start: 2000 HIV screening HIV screen [facility] Work Phone: Start: 1997 Adult depression screening assessment DEPRESSION SCREENING [facility] Start: 1997 COVID-19 Vaccine (1) COVID-19 Vaccine (1) [facility] Work Phone: Start: 1995 Diabetic foot examination Diabetic foot exam [facility] Work Phone: Start: 1995 Diabetic retinal exam Diabetic retinal exam [facility] Work Phone: Start: 1995 Hemoglobin A1c measurement A1C test (Diabetic or Prediabetic) [facility] Work Phone: Start: 1995 Hepatitis B screening URINE ALBUMIN:CREATININE RATIO [facility] Start: 1995 Hepatitis C antibody, confirmatory test DILATED RETINAL EXAM [facility] Start: 1995 Lipid panel Lipid screen [facility] Work Phone: Start: 1991 PNEUMOCOCCAL (1 - PCV) PNEUMOCOCCAL (1 - PCV) [facility] Start: 1991 Pneumococcal 0-64 years Vaccine (1 of 2 - PPSV23) Pneumococcal 0-64 years Vaccine (1 of 2 - PPSV23) [facility] Work Phone: Start: 1986 Varicella vaccine (1 of 2 - 2-dose childhood series) Varicella vaccine (1 of 2 - 2-dose childhood series) [facility] Work Phone: Start: 1985 HEPATITIS B (1 of 3 - 3-dose series) HEPATITIS B (1 of 3 - 3-dose series) [facility] Start: 1985 Hepatitis C screening Hepatitis C screen [facility] Work Phone: End: 06-18-2021 CBC + DIFF (FOR REMOTE [facility] USE) CBC + DIFF (FOR REMOTE [facility] USE) Lab Routine Essential hypertension 1 Occurrences starting 06/18/2020 until 06/18/2021 [facility] Comment on above: 1 Occurrences starting 06/18/2020 until 06/18/2021 End: 06-18-2021 CMP (CMP) (FOR REMOTE [facility] USE) CMP (CMP) (FOR REMOTE [facility] USE) Lab Routine Essential hypertension 1 Occurrences starting 06/18/2020 until 06/18/2021 [facility] Comment on above: 1 Occurrences starting 06/18/2020 until 06/18/2021 Full PFT Study With Bronchodilator Full PFT Study With Bronchodilator PFT Routine Shortness of breath VICKY on CPAP 09/09/2020 7:56 AM EDT [facility] Work Phone: End: 06-18-2021 HbA1c (Bld) [Mass fraction] HEMOGLOBIN A1C (FOR REMOTE [facility] USE) Lab Routine Type 2 diabetes mellitus with hyperglycemia, with long-term current use of insulin (HCC) 1 Occurrences starting 06/18/2020 until 06/18/2021 [facility] Comment on above: 1 Occurrences starting 06/18/2020 until 06/18/2021 End: 06-18-2021 Lipid panel LIPID PANEL (LIPB) (FOR REMOTE [facility] USE) Lab Routine Mixed hyperlipidemia 1 Occurrences starting 06/18/2020 until 06/18/2021 [facility] Comment on above: 1 Occurrences starting 06/18/2020 until 06/18/2021 Neisseria gonorrhoea e rRNA [Presence] in Unspecified specimen by JANET with probe detection [facility] Patient Education [facility] Work Phone: Patient referral [facility] Work Phone: PCR test for Chlamyd ia trachomatis [facility] SARS-CoV-2 (COVID-19 ) RNA [Presence] in Respiratory specimen by JANET with probe detection 2019 CORONAVIRUS Microbiology Routine Flu-like symptoms 09/24/2022 12:17 PM EDT [facility] Work Phone: End: 10-25-2024 US Spleen [facility] Comment on above: ONCE for 1 Occurrences starting 10/26/19 until 10/25/2024 [facility] Immunizations Immunization Date Immunization Notes Care Provider Zacarias stacy 03-01-2023 influenza virus vacc ine, unspecified formulation Toñito Heltonzulma MARKS Work Phone: [facility] Payers Date Payer Category Payer Self-pay 2024 Unknown [id number] 2021 Private Health Insurance [id number] 2020 Private Health Insurance [id number] 2020 Unknown LORETTA PÉREZ SHAYNE [id number] 2020-Present [phone] [place] [id number] [id number] 1985 Unknown [id number] Unknown [employer] Unknown [id number] Social History Date Type Detail Facility Start: 06-18-2020 End: 06-09-2022 Tobacco smoking status NHIS Former smoker [facility] Start: 06-18-2020 End: 06-09-2022 Tobacco use and exposure Never used [facility] Start: 06-18-2020 End: 06-30-2023 Alcohol intake Ex-drinker (finding) [facility] Start: 1985 Sex Assigned At Not on file [facility] Exposure to SARS-CoV -2 (event) Not sure [facility] Start: 03-28-1998 End: 03-28-2019 History of tobacco use [facility] Start: 03-28-1998 End: 03-28-2019 History of tobacco use Cigarette Smoker [facility] Start: 03-28-1998 End: 03-28-2019 History of tobacco use Pipe Smoker [facility] Start: 03-28-1998 End: 03-28-2019 History of tobacco use Cigar Smoker [facility] Start: 09-09-2020 End: 12-29-2023 Cigarettes smoked current (pack per day) - Reported [facility] Work Phone: Start: 09-09-2020 End: 01-09-2021 Alcohol intake Current drinker of alcohol (finding) [facility] Work Phone: Start: 07-28-2020 History SDOH Alcohol Frequency 2 [facility] Work Phone: Start: 07-28-2020 History SDOH Alcohol Std Drinks 99 [facility] Work Phone: Start: 01-09-2021 History SDOH Financial 5 [facility] Work Phone: Start: 01-09-2021 History SDOH Food Worry 1 [facility] Work Phone: Start: 06-09-2022 Alcohol Comment Rarely [facility] Start: 06-30-2023 [facility] Start: 1985 Sex Assigned At Male W White [facility] Start: 06-30-2023 End: 12-29-2023 Tobacco use panel [facility] National Score (1-10 0), lower number is lower risk 89 [facility] Start: 11-07-2024 Tobacco smoking stat us AZIS Never smoked tobacco (finding) [facility] Clinical Notes 06-09-2022 to 10-25-2024 Sandy Cowan, JUDY - 10/25/2024 8:30 AM Gerda Mccain RDMS - 09/11/2024 8:30 AM Larisa Jimenez MD - 06/20/2024 10:43 AM Jennifer Maria RN - 12/29/2023 9:00 AM EDT Note Date & Type Note Facility 10-25-2024 History of Present illness Narrative Radiology Service Progress Note PATIENT NAME: Em Sanz DATE OF SERVICE: October 25, 2024 TIME: 4:15 PM PATIENT IDENTITY VERIFICATION COMPLETED USING TWO (2) IDENTIFIERS: Name and Date of confirmed by patient verbally. FALL SCREENING: Has the patient had 2 falls in the last year or 1 fall with injury or currently using an Ambulatory Assistive Device (Walker, Cane, Wheelchair, Crutches, etc.)? No PATIENT GENDER DATA: Assigned male at PATIENT RELEVANT IMPLANT DATA REVIEWED: Not Applicable PATIENT PRESENTS WITH AN IMPLANTABLE OR ATTACHED RESEARCH/PROGRAM DIRECTOR: No RADIOLOGY DEPARTMENT: Ultrasound PERIPHERAL IV DATA: Not applicable SIGNED BY: Sandy Cowan RDMS RVDianna October 25, 2024 4:15 PM documented in this encounter [facility] 10-25-2024 Note HNO ID: [id number] Author: SANDY COWAN RDMS Service: ? Author Type: Monitoring Specialist Type: Progress Notes Filed: 10/25/2024 16:15 Note Text: Radiology Service Progress Note PATIENT NAME: Em Sanz DATE OF SERVICE: October 25, 2024 TIME: 4:15 PM PATIENT IDENTITY VERIFICATION COMPLETED USING TWO (2) IDENTIFIERS: Name and Date of confirmed by patient verbally. FALL SCREENING: Has the patient had 2 falls in the last year or 1 fall with injury or currently using an Ambulatory Assistive Device (Walker, Cane, Wheelchair, Crutches, etc.)? No PATIENT GENDER DATA: Assigned male at PATIENT RELEVANT IMPLANT DATA REVIEWED: Not Applicable PATIENT PRESENTS WITH AN IMPLANTABLE OR ATTACHED RESEARCH/PROGRAM DIRECTOR: No RADIOLOGY DEPARTMENT: Ultrasound PERIPHERAL IV DATA: Not applicable SIGNED BY: Sandy Cowan RDMS RVT October 25, 2024 4:15 PM [facility] 09-11-2024 History of Present illness Narrative Radiology Service Progress Note PATIENT NAME: Em Sanz DATE OF SERVICE: September 11, 2024 TIME: 4:21 PM PATIENT IDENTITY VERIFICATION COMPLETED USING TWO (2) IDENTIFIERS: Name and Date of confirmed by patient verbally. FALL SCREENING: Has the patient had 2 falls in the last year or 1 fall with injury or currently using an Ambulatory Assistive Device (Walker, Cane, Wheelchair, Crutches, etc.)? No PATIENT GENDER DATA: Assigned male at PATIENT RELEVANT IMPLANT DATA REVIEWED: Not Applicable PATIENT PRESENTS WITH AN IMPLANTABLE OR ATTACHED RESEARCH/PROGRAM DIRECTOR: No RADIOLOGY DEPARTMENT: Ultrasound PERIPHERAL IV DATA: Not applicable SIGNED BY: Gerda Lipscomb RDMS September 11, 2024 4:21 PM documented in this encounter [facility] 09-11-2024 Note HNO ID: [id number] Author: GERDA LIPSCOMB RDMS Service: ? Author Type: Central Supply Assistant Type: Progress Notes Filed: 09/11/2024 16:21 Note Text: Radiology Service Progress Note PATIENT NAME: Em Sanz DATE OF SERVICE: September 11, 2024 TIME: 4:21 PM PATIENT IDENTITY VERIFICATION COMPLETED USING TWO (2) IDENTIFIERS: Name and Date of confirmed by patient verbally. FALL SCREENING: Has the patient had 2 falls in the last year or 1 fall with injury or currently using an Ambulatory Assistive Device (Walker, Cane, Wheelchair, Crutches, etc.)? No PATIENT GENDER DATA: Assigned male at PATIENT RELEVANT IMPLANT DATA REVIEWED: Not Applicable PATIENT PRESENTS WITH AN IMPLANTABLE OR ATTACHED RESEARCH/PROGRAM DIRECTOR: No RADIOLOGY DEPARTMENT: Ultrasound PERIPHERAL IV DATA: Not applicable SIGNED BY: Greda Lipscomb RDMS September 11, 2024 4:21 PM [facility] 06-20-2024 Note HNO ID: [id number] Author: LARISA CLARK MD Service: ? Author Type: Physician Type: Progress Notes Filed: 06/21/2024 00:19 Note Text: June 20, 2024 An order has been received for a Home Sleep Test from Nina Alcocer CNP, A. Sleep Center Staff/Elementary Ell Teacher Staff Orders. Visit prep complete - Please refer to the sleep study order (under procedures tab) for protocol details and special instructions. Scheduled for 06/21/2024. Insurance: Payor: AETNA / Plan: AETNA OPEN ACCESS AETNA SELECT / Product Type: EPO / Payer/Plan Subscr Sex Relation Sub. Ins. ID Effective Group Num 1. AETNA - AETNA* EM SANZ 1985 Male Self [id number] 06[birth year] [id number] [id number] Sandy Luna 2024 Standing PSG Orders signed in the last 90 days None Future PSG Orders signed in the last 90 days None All Prior Sleep Studies (past 365 days) No data to display BMI Readings from Last 2 Encounters: 06/30/23 : 53.00 kg/m? 09/24/22 : 55.23 kg/m? PAST MEDICAL HISTORY Diagnosis Date HTN (hypertension) Sarcoidosis Type 2 diabetes (HCC) The medical record was reviewed to determine if the proposed sleep study conforms to the AASM Practice Parameters for the Indications for Polysomnography and Related Procedures, or if the sleep study is indicated for other reasons. Indications for study: VICKY suspected with comorbid medical or sleep disorders: Morbid obesity (BMI>40 kg/m2) Sleep study to be performed: Home Sleep Apnea Test (HSAT) Special instructions: None-follow laboratory protocol Sandy Kenny - Sleep Medicine Staff Note: I have read the above protocol, edited as needed, and agree to the plan. Larisa Clark MD 12:19 AM, 06/21/2024 [facility] 06-20-2024 History of Present illness Narrative Images from the original note were not included. June 20, 2024 An order has been received for a Home Sleep Test from Nina Alcocer CNP, A. Sleep Center Staff/Elementary Ell Teacher Staff Orders. Visit prep complete - Please refer to the sleep study order (under procedures tab) for protocol details and special instructions. Scheduled for 06/21/2024. Insurance: Payor: AETNA / Plan: AETNA OPEN ACCESS AETNA SELECT / Product Type: EPO / Payer/Plan Subscr Sex Relation Sub. Ins. ID Effective Group Num 1. AETNA - AETNA* EM SANZ 1985 Male Self [id number] [birth year] [id number] [id number] Sandy Luna 2024 Standing PSG Orders signed in the last 90 days None Future PSG Orders signed in the last 90 days None All Prior Sleep Studies (past 365 days) No data to display BMI Readings from Last 2 Encounters: 06/30/23 : 53.00 kg/m 09/24/22 : 55.23 kg/m PAST MEDICAL HISTORY Diagnosis Date HTN (hypertension) Sarcoidosis Type 2 diabetes (HCC) The medical record was reviewed to determine if the proposed sleep study conforms to the AASM Practice Parameters for the Indications for Polysomnography and Related Procedures, or if the sleep study is indicated for other reasons. Indications for study: VICKY suspected with comorbid medical or sleep disorders: Morbid obesity (BMI>40 kg/m2) Sleep study to be performed: Home Sleep Apnea Test (HSAT) Special instructions: None-follow laboratory protocol Sandy Kenny - Sleep Medicine Staff Note: I have read the above protocol, edited as needed, and agree to the plan. Larisa Clark MD 12:19 AM, 06/21/2024 documented in this encounter [facility] 12-29-2023 Nurse Note Maximal stress test explained and questions answered. [facility] 12-29-2023 Nurse Note Maximal stress test explained and questions answered. documented in this encounter [facility] 10-24-2023 Note HNO ID: [id number] Author: LARISA CLARK MD Service: ? Author Type: Physician Type: Progress Notes Filed: 10/24/2023 15:02 Note Text: October 24, 2023 An order has been received for a Home Sleep Test from JESSICA Horn A. Sleep Center Staff/Elementary Ell Teacher Staff Orders. Visit prep complete - Please refer to the sleep study order (under procedures tab) for protocol details and special instructions. Scheduled for 10/26/2023. Insurance: Payor: AETNA / Plan: AETNA OPEN ACCESS AETNA SELECT / Product Type: EPO / Payer/Plan Subscr Sex Relation Sub. Ins. ID Effective Group Num 1. AETNA - AETNA* EM SANZ 1985 Male Self [id number] [birth year] [id number] [address] Sandy Miller 2023 Standing PSG Orders signed in the last 90 days None Future PSG Orders signed in the last 90 days None All Prior Sleep Studies (past 365 days) No data to display BMI Readings from Last 2 Encounters: 06/30/23 : 53.00 kg/m? 09/24/22 : 55.23 kg/m? PAST MEDICAL HISTORY Diagnosis Date HTN (hypertension) Sarcoidosis Type 2 diabetes (HCC) The medical record was reviewed to determine if the proposed sleep study conforms to the AASM Practice Parameters for the Indications for Polysomnography and Related Procedures, or if the sleep study is indicated for other reasons. Indications for study: VICKY suspected with comorbid medical or sleep disorders: Morbid obesity (BMI>40 kg/m2) Sleep study to be performed: Home Sleep Apnea Test (HSAT) Special instructions: None-follow laboratory protocol Sandy Kenny - Sleep Medicine Staff Note: I have read the above protocol, edited as needed, and agree to the plan. Larisa Clark MD 3:02 PM, 10/24/2023 [facility] 10-24-2023 History of Present illness Narrative Images from the original note were not included. October 24, 2023 An order has been received for a Home Sleep Test from JESSICA Horn A. Sleep Center Staff/Elementary Ell Teacher Staff Orders. Visit prep complete - Please refer to the sleep study order (under procedures tab) for protocol details and special instructions. Scheduled for 10/26/2023. Insurance: Payor: AETNA / Plan: AETNA OPEN ACCESS AETNA SELECT / Product Type: EPO / Payer/Plan Subscr Sex Relation Sub. Ins. ID Effective Group Num 1. AETNA - AETNA* EM SANZ 1985 Male Self [id number] [birth year] [id number] [address] Sandy Miller 2023 Standing PSG Orders signed in the last 90 days None Future PSG Orders signed in the last 90 days None All Prior Sleep Studies (past 365 days) No data to display BMI Readings from Last 2 Encounters: 06/30/23 : 53.00 kg/m 09/24/22 : 55.23 kg/m PAST MEDICAL HISTORY Diagnosis Date HTN (hypertension) Sarcoidosis Type 2 diabetes (HCC) The medical record was reviewed to determine if the proposed sleep study conforms to the AASM Practice Parameters for the Indications for Polysomnography and Related Procedures, or if the sleep study is indicated for other reasons. Indications for study: VICKY suspected with comorbid medical or sleep disorders: Morbid obesity (BMI>40 kg/m2) Sleep study to be performed: Home Sleep Apnea Test (HSAT) Special instructions: None-follow laboratory protocol Sandy Kenny - Sleep Medicine Staff Note: I have read the above protocol, edited as needed, and agree to the plan. Larisa Clark MD 3:02 PM, 10/24/2023 documented in this encounter [facility] 06-30-2023 Discharge summary Note Date/Time June 30, 2023 3:45pm [facility] Medical Records Department [address] [place] [address] Emergency Department Summary 06/30/23 MR#: [id number] Acct: [id number] Name: EM SANZ Rep #:[id number] 1 : 1985 38 From: Ladarius Perales MD PCP: Care Physician,No Primary Status :REG ER Location: ED HPI History of Present Illness Chief Complaint: Complaint Informant: patient Narrative Narrative: Patient states started by having diarrhea for about the past 1 week. It has been watery, some occasional lower abdominal cramping that is mild, and he has hemorrhoids that he can feels whenever he bears down to either have diarrhea or to urinate, he states he can feel them come out and then go back in. Right now while not Valsalva-maneuvering, he does not have any discomfort there and feels like they are back inside. He has been having bright red blood per rectum alongwith the diarrhea/bowel movements. Also states about a week ago he slipped on some black ice outside, falling to his right side injuring his right lower lateral rib cage that has been hurting whenever he moves or takes deep breaths ever since but he denies any dyspnea or other chest discomfort. He denies any hematuria but has been having urinary symptoms for several days, states he feelslike he needs to urinate but is having trouble getting it all out and does not feel like he is emptying his bladder. There is some dysuria. He denies any travel out of the area recently. No recent antibiotics for anything. Denies any suspicious food intake. No known sick contacts. States he is on Ozempic which is new about 2 months ago, he was not having any problems or side effectsinitially until all of this started about a week ago. [facility] Medical History (Updated 06/30/23 @ 18:[address] Ladarius Perales MD) Bipolar 1 disorder Type 2 diabetes mellitus Home Medications hydrocortisone 1 %-pramoxine 1 % rectal foam (Proctofoam HC) 1 applic IL QHS PRNhemorrhoids 2 weeks #10 grams 06/30/23 [Rx Last Taken Unknown] sulfamethoxazole 800 mg-trimethoprim 160 mg tablet 1 tab PO BID #6 TABLETS 06/30/23 [Rx Last Taken Unknown] Allergy/AdvReac Type Severity Reaction Status Date / Time No Known Allergies Allergy Verified 06/30/23 15:08 Social History Smoking Status: Never smoker ROS ROS ED Constitutional Constitutional ED: Denies chills or fever(s) Eyes Eyes: Denies change in vision or diplopia ENT ENT ED: Denies rhinorrhea or sore throat Cardiovascular Cardiovascular: Denies chest pain or palpitations Respiratory/Chest Respiratory/Chest: Denies cough or dyspnea Gastrointestinal Gastrointestinal: Reports abdominal pain, diarrhea, hematochezia, hemorrhoids and vomiting; Denies melena or nausea Genitourinary Genitourinary ED: Reports dysuria, urinary frequency and other Details: Feels like trouble emptying bladder. no perineal pain, or pain when having BM except for anal pain due to hemorrhoids. ; Denies hematuria Musculoskeletal Musculoskeletal: Reports back pain; Denies neck pain Integumentary Denies abscess or rash Neurologic Neurologic: Denies headache(s), paresthesias or weakness Psychiatric Psychiatric: Denies suicidal ideation or suicidal thoughts EXAM Physical Exam Const Vital Signs: 06/30/23 15:08 06/30/23 17:08 Temperature 97.6 F L Temperature Source Temporal Pulse Rate 93 86 Respiratory Rate 18 14 Blood Pressure 162/106 H 155/82 H Blood Pressure Mean 124 106 Pulse Ox 98 97 Oxygen Delivery Method Room Air Room Air Positive well nourished, well developed and obese General Appearance ED: well developed and NAD Nutritional Appearance: obese HEENT Reports moist mucous membranes normocephalic and atraumatic Eyes PERRL and EOMs intact bilaterally Neck full ROM and supple Resp normal respiratory effort and clear to auscultation bilaterally Cardio regular rate, regular rhythm and no murmurs GI non-tender and non-distended Auscultation: normoactive bowel sounds Palpation: soft Back/Spine no CVA tenderness Back/Spine Narrative: Tender right lateral lumbar back, basically in ribs 10 and 11. No outward signsof trauma. No true CVA tenderness. General Back: other FROM Extremity normal to inspection General Extremety ED: Negative for edema, pulses abnormal or tenderness General Extremity: Negative for edema or pulses abnormal Neuro oriented x3, CN's II-XII intact bilaterally and no sensory deficits noted Sensorium / Orientation: awake and alert Motor Exam: strength 5/5 throughout Psych mental status grossly normal Skin no rashes or lesions noted and no wounds MDM MDM MDM Narrative Medical decision making narrative: I did obtain a 6 view x-ray series of the right rib cage including PA chest all of which is unremarkable on my interpretation. Radiology was in agreement no obvious fractures or pneumothorax. I did obtain some labs they look good, his urine shows no acute infection, will refer him to urology. Could be a urethritis, will try a 3-day course of bactrim to cover for bacterial etiologies; he does not have high risk for GC/Chlamydia, but I sent those off for testing and that is pending. He does not have any symptoms of prostate pain,but he is obese and I would be unable to reach his prostate on exam so I deferred that exam. Patient bladder scanned for 145 cc before urinating, he wasonly able to urinate less than 20 cc but based on this I would not advise a catheter. With regards to his diarrhea, 3 days of antibiotics is not likely to make this a lot worse, but if it does he is advised to stop them. He is more than likely having diarrhea from either a diet or viral etiology, less likely bacterial but we ordered an enteric bacterial panel just in case since he was having blood in it, although he does not have any specific risk factors for bacterial etiologies. The blood is more likely coming from the hemorrhoids talks about I will prescribe him something for that. Advised to follow-up. I do not think we need to treat him empirically for prostatitis at this time especially since he has acute diarrhea. Lab Data Attestation: I reviewed the patient's lab results. Labs: Laboratory Results - last 24 hr 06/30/23 06/30/23 15:55 18:19 WBC 6.3 RBC 6.29 H Hgb 16.9 H Hct 50.3 MCV 80.0 MCH 26.9 L MCHC 33.6 RDW Std Deviation 38.5 RDW Coeff of [place] 13.3 Plt Count 202 MPV 9.6 Immature Gran % (Auto) 0.500 Neut % (Auto) 52.8 Lymph % (Auto) 28.6 [place] % (Auto) 10.2 H Eos % (Auto) 7.3 H Baso % (Auto) 0.6 Absolute Neuts (auto) 3.3 Absolute Lymphs (auto) 1.79 Nucleated RBC % 0 Sodium 138 Potassium 4.1 Chloride 107 Carbon Dioxide 26.0 Anion Gap 5 BUN 8 Creatinine 0.96 Est GFR (MDRD) Af Amer 112 Est GFR (MDRD) Non-Af 93 BUN/Creatinine Ratio 8.3 L Glucose 131 H Calcium 8.9 Total Bilirubin 0.50 AST 48 H ALT 45 Alkaline Phosphatase 94 Total Protein 7.2 Albumin 4.1 Globulin 3.1 Albumin/Globulin Ratio 1.3 Urine Color Yellow Urine Clarity Sl. Cloudy Urine pH 5.0 Ur Specific [place] 1.030 Urine Protein 30 H Urine Glucose (UA) Normal Urine Ketones 5 H Urine Occult Blood 10 H Urine Nitrite Negative Urine Bilirubin Negative Urine Urobilinogen Normal Ur Leukocyte Esterase 25 H Urine RBC 0-5 SEEN Urine WBC 0-5 SEEN Ur Squamous Epith Cells 0-5 SEEN Urine Bacteria 0 SEEN Urine Mucus 2+ Radiography Diagnostic Testing: Clinical Impression(s) from Imaging Studies Ribs w/Chest X-Ray 06/30/23 16:03 IMPRESSION: Negative chest and right ribs series. Electronically Signed: Darius Hale MD at 16:29 EDT Reading Location ID and State: [facility] / [place] , Service support , Discharge Plan Triage Chief Complaint: Complaint ED Provider: Ladarius Perales Dx/Rx/DC Orders Clinical Impression: Contusion of rib on right side, Dysuria, Bleeding external hemorrhoids, Acute diarrhea Instructions: ED Dysuria, Uncertain Cause (Adult), ED Hemorrhoids Prescriptions: New sulfamethoxazole-trimethoprim [sulfamethoxazole-trimethoprim] 800-160 mg tablet 1 tab PO BID Qty: 6 0RF Proctofoam HC 1-1 % foam 1 applic IL QHS PRN (Reason: hemorrhoids) 14 Days Qty: 10 0RF Primary Care Provider: Care Physician,No Primary Referrals: Alexis Dumont MD [Med Staff - Active Staff] - 1 Week if not improving Disposition Disposition: Home, Self Care What to do if you have Problems For any increased pain, shortness of breath, bleeding, nausea or vomiting, chestpain, or any unexpected problems, contact your Primary Care Provider. Call [facility] ([phone]) or report to the closest Emergency Room. Call 911 if necessary. 06/30/23 1853 <Electronically signed by Ladarius Perales MD> Cosigner Signature (if applicable): CC: No Primary Care Physician ~ Signed [facility] Work Phone: [phone] 750-796404-04-2024 History of Present illness Narrative* Sandy Clement APRN.COPY OPERATOR - 06/30/2023 3:13 PM EDT This note was created using NoteWriter. Subjective Em Sanz is a 38 year old male. 38 year old male with PMH HTN, DM, and hyperlipidemia presents for complaints of hemorrhoids. Acute onset 8 days ago +diarrhea was onset Has progressively worsened Flared up my hemorrhoids Endorses internal hemorrhoids States that he has been experiencing difficulty with bowel movement and urinating He also complains of abdominal pain. The history is provided by the patient. Diarrhea This is a new problem. The current episode started more than 1 week ago. Review of Systems Gastrointestinal: Positive for diarrhea. Objective BP 146/82 Pulse 92 Temp 36.9 C (98.5 F) Resp 16 Wt (!) 182.2 kg (401 lb 10.9 oz) SpO2 97% BMI 53.00 kg/m Physical Exam Constitutional: Appearance: He is obese. Genitourinary: Comments: External rectal exam without hemorrhoids noted Assessment and Plan ASSESSMENT/PLAN: 1. Generalized abdominal pain - ICD9: 789.07, ICD10: R10.84 (primary diagnosis) Etiology unclear - Given extensive PMH, referred to ED for imaging to rule out intra abdominal process and/or rectalabscess, as patient is having difficulty with defecating and also abdominal pain. 2. Urinary retention - ICD9: 788.20, ICD10: R33.9 Unsure of exact reason why patient unable to urinate Given extensive PMH, referred to ED for imaging to rule out rectal abscess, as patient is having difficulty with defecating and also abdominal pain. Sandy Clement APRN.CNP [facility] Miscellaneous Notes* Telephone Encounter - Lenora Acosta LPN - 09/24/2022 1:09 PM EDT Phone call placed patient advised (see prior provider encounter) Patient verbalized understanding, agreed with plan of care, MyChart log on reviewed with patient. Lenora Acosta LPN * Telephone Encounter - Simeon Hernandez APRN.CNP - 09/24/2022 12:48 PM EDT Please notify that chest xray negative Covid test pending If positive will send medication tomorrow If negative follow up with primary care provider Tuesday -If you experience chest pain/shortness of breath go to ER [facility] Instructions* Patient Instructions* Simeon Hernandez APRN.CNP - 09/24/2022 1:01 PM EDT Males: [x] Sexually active male with partner(s) of childbearing potential has been advised to use a reliable method of contraception correctly and consistently for intercourse for the duration of treatment and for three months after the last dose of molnupiravir Severe or worsening symptoms go to ER. -If you experience chest pain/shortness of breath go to ER Fact Sheet for Patients And Caregivers Emergency Use Authorization (EUA) Of LAGEVRIO (molnupiravir) capsules For Coronavirus Disease 2019 (COVID-19) What is the most important information I should know about LAGEVRIO? LAGEVRIO may cause serious side effects, including: LAGEVRIO may cause harm to your unborn baby. It is not known if LAGEVRIO will harm your baby if youtake LAGEVRIO during . LAGEVRIO is not recommended for use in . LAGEVRIO has not been studied in . LAGEVRIO was studied in animals only. When LAGEVRIO was given to animals, LAGEVRIO caused harm to their unborn babies. You and your healthcare provider may decide that you should take LAGEVRIO during if thereare no other COVID-19 treatment options approved or authorized by the FDA that are accessible or clinically appropriate for you. If you and your healthcare provider decide that you should take LAGEVRIO during , you and your healthcare provider should discuss the known and potential benefits and the potential risks of taking LAGEVRIO during . For individuals who are able to become : You should use a reliable method of control (contraception) consistently and correctly duringtreatment with LAGEVRIO and for 4 days after the last dose of LAGEVRIO. Talk to your healthcare provider about reliable control methods. Before starting treatment with LAGEVRIO your healthcare provider may do a test to see if you are before starting treatment with LAGEVRIO. Tell your healthcare provider right away if you become or think you may be duringtreatment with LAGEVRIO. Registry: There is a registry for individuals who take LAGEVRIO during . The purpose of this program is to collect information about the health of you and your baby. If you are or become during treatment with LAGEVRIO, you are encouraged to reportyour use of LAGEVRIO during to this registry at [email or web address] or . For individuals who are sexually active with partners who are able to become : It is not known if LAGEVRIO can affect sperm. While the risk is regarded as low, animal studies to fully assess the potential for LAGEVRIO to affect the babies of males treated with LAGEVRIO have notbeen completed. A reliable method of control (contraception) should be used consistently and correctly during treatment with LAGEVRIO and for at least 3 months after the last dose. The risk to sperm beyond 3 months is not known. Studies to understand the risk to sperm beyond 3 months are ongoing. Talk to your healthcare provider about reliable control methods. Talk to your healthcare provider if you have questions or concerns about how LAGEVRIO may affect sperm. You are being given this fact sheet because your healthcare provider believes it is necessary to provide you with LAGEVRIO for the treatment of adults with a current diagnosis of mild-tomoderate coronavirus disease 2019 (COVID-19) who are at high risk for progression to severe COVID-19, including hospitalization or , and for whom other COVID-19 treatment options approved or authorized by theFDA are not accessible or clinically appropriate. The [place].S. Food and Drug Administration (FDA) has issued an Emergency Use Authorization (EUA) to makeLAGEVRIO available during the COVID-19 pandemic (for more details about an EUA please see What is an Emergency Use Authorization? at the end of this document). LAGEVRIO is not an FDA-approved medicine in the [place]. Read this Fact Sheet for information about LAGEVRIO. Talk to your healthcareprovider about your options if you have any questions. It is your choice to take LAGEVRIO. What is COVID-19? COVID-19 is caused by a virus called a coronavirus. You can get COVID-19 through close contact withanother person who has the virus. COVID-19 illnesses have ranged from very gqrl-qo-rvuamj, including illness resulting in . While information so far suggests that most COVID-19 illness is mild, serious illness can happen and maycause some of your other medical conditions to become worse. Older people and people of all ages with severe, long lasting (chronic) medical conditions like heart disease, lung disease and diabetes, for example seem to be at higher risk of being hospitalized for COVID-19. What is LAGEVRIO? LAGEVRIO is an investigational medicine used to treat adults with a current diagnosis of mild to moderate COVID-19: who are at high risk for progression to severe COVID-19 including hospitalization or , and for whom other COVID-19 treatment options approved or authorized by the FDA are not accessible or clinically appropriate. The FDA has authorized the emergency use of LAGEVRIO for the treatment of mild- tomoderate COVID-19 in adults under an EUA. For more information on EUA, see the What is an Emergency Use Authorization (EUA)? section at the end of this Fact Sheet. LAGEVRIO is not authorized: for use in people less than 18 years of age. for prevention of COVID-19. for people needing hospitalization for COVID-19. for use for longer than 5 consecutive days. What should I tell my healthcare provider before I take LAGEVRIO? Tell your healthcare provider if you: have any allergies are or plan to breastfeed have any serious illnesses Take any medicines including prescription, lsfi-zag-hlbrjoc medicines, vitamins, and herbal products. How do I take LAGEVRIO? Take LAGEVRIO exactly as your healthcare provider tells you to take it. Take 4 capsules of LAGEVRIO every 12 hours (for example, at 8 am and at 8 pm) Take LAGEVRIO for 5 days. It is important that you complete the full 5 days of treatment with LAGEVRIO. Do not stop taking LAGEVRIO before you complete the full 5 days of treatment, even if you feel better. Take LAGEVRIO with or without food. You should stay in isolation for as long as your healthcare provider tells you to. Talk to your healthcare provider if you are not sure about how to properly isolate while you have COVID-19. Swallow LAGEVRIO capsules whole. Do not open, break, or crush the capsules. If you cannot swallow capsules whole, tell your healthcare provider. If your healthcare provider prescribes LAGEVRIO and tells you to take or give a dose through a nasogastric (NG) or orogastric (OG) tube, follow the instructions below: How to take or give a dose of LAGEVRIO through a nasogastric (NG) or orogastric (OG) feeding tube. You must have an NG or OG that is size 12 [place] (FR) or larger. If you miss a dose of LAGEVRIO: If it has been less than 10 hours since the missed dose, take it as soon as you remember. If it has been more than 10 hours since the missed dose, skip the missed dose and take your dose atthe next scheduled time. Do not double the dose of LAGEVRIO to make up for a missed dose. How to take or give a dose of LAGEVRIO through a nasogastric (NG) or orogastric (OG) feeding tube: Wash your hands well with soap and water. Gather the supplies you will need to take or give the prescribed dose of LAGEVRIO. 4 LAGEVRIO capsules 1 liquid measuring cup with mL markings to measure 40 mL of room temperature water 1 clean container with a lid 1 catheter tip syringe. Your healthcare provider should tell you what size catheter tip syringe youwill need to take or give a dose of LAGEVRIO. Place the needed supplies on a clean work surface. Follow your healthcare provider s instructions on how to flush the NG or OG feeding tube. Flush theNG or OG feeding tube with 5 mL of water before taking or giving a dose of LAGEVRIO. Carefully open 4 LAGEVRIO capsules, one at a time, and empty the contents into a clean container. Use the liquid measuring cup to measure 40 mL of room temperature water and add to the container containing the capsule contents. Place the lid on the container. Shake to mix the capsule contents and water well for 3 minutes. Thecapsule contents may not dissolve completely. Remove the lid from the container and draw up all the LAGEVRIO and water mixture into a catheter tip syringe. Give all of the mixture right away through the NG or OG feeding tube. Do not keep the mixture for future use. If any capsule contents are left in the container: Add 10 mL of water to the container, and mix to loosen any capsule contents that are left in the container. Use the catheter tip syringe to draw up all of the mixture in the container. Give the mixture through the NG or OG feeding tube. Repeat this process as needed until you no longer see any capsule contents left in the container orcatheter tip syringe. Use the same catheter tip syringe to flush the NG or OG feeding tube 2 times with 5 mL of water (10mL total). Rinse the container, lid and catheter tip syringe well with clean water after use. Place on a cleanpaper towel until next use. What are the important possible side effects of LAGEVRIO? See, What is the most important information I should know about LAGEVRIO? Allergic Reactions. Allergic reactions can happen in people taking LAGEVRIO, even after only 1 dose. Stop taking LAGEVRIO and call your healthcare provider right away if you get any of the following symptoms of an allergic reaction: hives rapid heartbeat trouble swallowing or breathing swelling of the mouth, lips, or face throat tightness hoarseness skin rash The most common side effects of LAGEVRIO are: diarrhea nausea dizziness These are not all the possible side effects of LAGEVRIO. Not many people have taken LAGEVRIO. Serious and unexpected side effects may happen. This medicine is still being studied, so it is possible that all of the risks are not known at this time. What other treatment choices are there? Veklury (remdesivir) is FDA-approved as an intravenous (IV) infusion for the treatment of mildto-moderate COVID-19 in certain adults and children. Talk with your doctor to see if Veklury is appropriate for you. Like LAGEVRIO, FDA may also allow for the emergency use of other medicines to treat people with COVID-19. Go to https://www.fda.gov/mtgflqsmv-whhisuhazuto-udc-response/wek-qsocpssvugoawxq-lop- policy-framework/paoybtorf-mmk-cfxuwofkzrnve for more information. It is your choice to be treated or not to be treated with LAGEVRIO. Should you decide not to take it, it will not change your standard medical care. What if I am ? is not recommended during treatment with LAGEVRIO and for 4 days after the last dose of LAGEVRIO. If you are or plan to breastfeed, talk to your healthcare provider about your options and specific situation before taking LAGEVRIO. How do I report side effects with LAGEVRIO? Contact your healthcare provider if you have any side effects that bother you or do not go away. Report side effects to FDA MedWatch at www.fda.gov/medwatch or call 5-947-HEP-5598 (1877.773.5988). How should I store LAGEVRIO? Store LAGEVRIO capsules at room temperature between 68 F to 77 F (20 C to 25 C). Keep LAGEVRIO and all medicines out of the reach of children. How can I learn more about COVID-19? Ask your healthcare provider. Visit www.cdc.gov/COVID19 Contact your local or state public health department. Call [employer] at (toll free in the [place] Visit www.[employer] What Is an Emergency Use Authorization (EUA)? The [place] FDA has made LAGEVRIO available under an emergency access mechanism called an Emergency Use Authorization (EUA) The EUA is supported by a Glass Setter of Health and Human Service (HHS)declaration that circumstances exist to justify emergency use of drugs and biological products during the COVID-19 pandemic. LAGEVRIO for the treatment of adults with a current diagnosis of sfwj-um-pnmtrnhb COVID-19 who are at high risk for progression to severe COVID- 19, including hospitalization or , and for whom alternative COVID-19 treatment options approved or authorized by FDA are not accessible or clinically appropriate, has not undergone the same type of review as an FDAapproved product. In issuing an EUA under the COVID-19 public health emergency, the FDA has determined, among other things, that based on the total amount of scientific evidence available including data from adequate and well-controlledclinical trials, if available, it is reasonable to believe that the product may be effective for diagnosing, treating, or preventing COVID-19, or a serious or life-threatening disease or condition caused by COVID-19; that the known and potential benefits of the product, when used to diagnose, treat, or prevent such disease or condition, outweigh the known and potential risks of such product; and that there are no adequate, approved, and available alternatives. All of these criteria must be met to allow for the product to be used in the treatment of patients during the COVID-19 pandemic. The EUA for LAGEVRIO is in effect for the duration of the COVID-19 declaration justifying emergency use of LAGEVRIO, unless terminated or revoked (after which LAGEVRIO may no longer be used under the EUA). Timothy. for: [employer] [address] For patent information: www.[employer]/research/patent Copyright [employer] [place], [place], [facility] and its affiliates. All rights reserved. [id number] Revised: April 2022 documented in this encounterOhio [facility] History of Present illness Narrative* Simeon Hernandez APRN.SELINA - 09/24/2022 12:56 PM EDT Subjective HPI HPI Em Sanz is a 37 year old male who presents today for CC of st, cough, fever, body aches.This started 3 days ago. Has tried otc medication for relief. Symptoms are worsened by nothing. Risk factors sick exposures at home and work. Smoker, patient diabetic. .Patient presents with: Sore Throat: Fever, bodyaches x3 days PAST MEDICAL HISTORY Diagnosis Date HTN (hypertension) Sarcoidosis Type 2 diabetes (HCC) PAST SURGICAL HISTORY Procedure Laterality Date IR RT HEART CATH ALLERGIES Patient has no known allergies. MEDICATIONS amLODIPine (NORVASC) 5 mg tablet atorvastatin (LIPITOR) 80 mg tablet FREESTYLE WANDA 3 SENSOR ridge buPROPion XL (WELLBUTRIN XL) 150 mg 24 hr tablet divalproex ER (DEPAKOTE ER) 250 mg 24 hr tablet TRULICITY 0.75 mg/0.5 mL pen injector FLUoxetine (PROZAC) 20 mg capsule insulin glargine-yfgn (SEMGLEE) 100 unit/mL (3 mL) insulin pen lamoTRIgine (LAMICTAL) 200 mg tablet lisinopril (ZESTRIL) 20 mg tablet linaclotide (LINZESS) 145 mcg capsule Take 1 capsule by mouth once daily. metFORMIN (GLUCOPHAGE) 500 mg tablet Take 500 mg by mouth twice daily with meals. glipiZIDE (GLUCOTROL) 5 mg tablet Take 5 mg by mouth twice daily before meals. sulfamethoxazole-trimethoprim (BACTRIM DS,SEPTRA DS) 800-160 mg per tablet Take 1 tablet by mouth three times a week. insulin NPH human isophane (HUMULIN N NPH INSULIN KWIKPEN SUBCUTANEOUS) Inject 40 Units subcutaneously daily at bedtime. FAMILY HISTORY Problem Relation Age of Onset Colon Cancer Paternal Aunt Social History Tobacco Use Smoking status: Former Types: Cigarettes Smokeless tobacco: Never Vaping Use Vaping Use: Never used Substance Use Topics Alcohol use: Not Currently Comment: Rarely Drug use: Yes Types: Marijuana Comment: Occ. Review of Systems Constitutional: Positive for chills, fever and malaise/fatigue. HENT: Positive for congestion and sore throat. Negative for ear pain and nosebleeds. Respiratory: Positive for cough. Negative for shortness of breath and wheezing. Musculoskeletal: Negative for neck pain. Skin: Negative for itching and rash. Neurological: Positive for headaches. Objective Blood pressure 124/82, pulse 109, temperature (!) 39 C (102.2 F), resp. rate 26, weight (!) 189.9 kg (418 lb 9.6 oz), SpO2 94 %. Physical Exam Constitutional: General: He is not in acute distress. Appearance: He is ill-appearing. He is not toxic-appearing or diaphoretic. HENT: Head: Normocephalic and atraumatic. Right Ear: Hearing, tympanic membrane, ear canal and external ear normal. Left Ear: Hearing, tympanic membrane, ear canal and external ear normal. Nose: Nose normal. Mouth/Throat: Pharynx: Uvula midline. Posterior oropharyngeal erythema present. No pharyngeal swelling, oropharyngeal exudate or uvula swelling. Eyes: General: Lids are normal. No scleral icterus. Right eye: No discharge. Left eye: No discharge. Conjunctiva/sclera: Conjunctivae normal. Pupils: Pupils are equal, round, and reactive to light. Neck: Trachea: Trachea normal. Cardiovascular: Rate and Rhythm: Normal rate and regular rhythm. Heart sounds: Normal heart sounds. Pulmonary: Effort: Pulmonary effort is normal. Breath sounds: Normal breath sounds. Musculoskeletal: Cervical back: Normal range of motion and neck supple. Lymphadenopathy: Cervical: No cervical adenopathy. Right cervical: No superficial cervical adenopathy. Left cervical: No superficial cervical adenopathy. Skin: Findings: No rash. Neurological: Mental Status: He is alert and oriented to person, place, and time. Molnupiravir Eligibility and Patient Discussion [facility] Formulary Restriction Criteria: Adult outpatients 18 years and older with ALL of the following: [x] Patient has symptoms for 5 days or less [x] Not requiring hospitalization at any time for management of COVID-19 [x] Not requiring supplemental oxygen or a change in baseline supplemental oxygen [x] Not utilized for pre-exposure or post-exposure prophylaxis for prevention of COVID-19 [x] Patient is not or lactating [x] Meeting at least one of the criteria for high risk of progression to severe COVID-19: [] Age over 65 years [] Cancer [] Chronic kidney disease [x] Chronic liver disease [] Chronic lung diseases, including cystic fibrosis [] Dementia or other neurological conditions [x] Diabetes (type 1 or type 2) [] Disabilities, including Down syndrome and neurodevelopmental disorders [] Heart conditions [] HIV infection [] Immunocompromised state [] Mental health conditions [] Medical related technological dependence (tracheostomy, gastrostomy, or positive pressure ventilation (not related to COVID) [x] Overweight and obesity (BMI greater or equal to 25 for adults) [x] Physical inactivity [] Sickle cell disease or thalassemia [x] Smoking, current or former [] Solid organ or blood stem cell transplant [] Stroke or cerebrovascular disease [] Substance use disorders [] Tuberculosis [] People from racial and ethnic minority groups Criteria above are met: Yes Date of Symptom Onset: 09/21/22 Patient received COVID vaccine: Yes / status reviewed: Females: [] Patient is not currently and there is no possibility the patient could be (select one of the following): [] test does not need to be confirmed in patients who have undergone permanent sterilization, are currently using an intrauterine system or contraceptive implant, or in whom is not possible. [] Patients not meeting conditions above: assess whether the patient is based on the firstday of the last menstrual period in individuals who have regular menstrual cycles, is using reliable method of contraception correctly and consistently or have had a negative test [] A test is recommended if the individual has irregular menstrual cycles, is unsure of the first day of the last menstrual period or is not using effective contraception correctly and consistently [] Patient is not currently . is not recommended during treatment and for four days after final dose of molnupiravir. [] Females have been advised to use a reliable method of contraception correctly and consistently for the duration of treatment and for four days after the last dose of molnupiravir Males: [x] Sexually active male with partner(s) of childbearing potential has been advised to use a reliable method of contraception correctly and consistently for intercourse for the duration of treatment and for three months after the last dose of molnupiravir I have discussed the use of the investigational therapeutic, molnupiravir, for the treatment of mild to moderate COVID-19 and its use under Emergency Use Authorization with the patient. The patient was informed that molnupiravir is not an FDA approved drug and that it is authorized for use under this Emergency Use Authorization. The patient was also informed of the significant knownbenefits and potential risks of molnupiravir, and the extent to which such potential risks and benefits are unknown. The patient was informed that there is mandatory reporting of all medication errors and serious adverse events potentially related to molnupiravir treatment within 7 calendar days from the onset of the event and that events up to 28 days after completion of therapy need to be reported. The discussion included alternatives to receiving molnupiravir, including clinical trials, and potential the risks and benefits of those alternatives. The patient was provided electronically withthe Fact Sheet for Patients, Parents and Caregivers. The patient was also instructed that in addition to the treatment with molnupiravir, he/she should continue to self-isolate and use infection control measures (e.g., wear mask, isolate, social distance, avoid sharing personal items, clean and disinfect high touch surfaces, and frequent handwashing) according to CDC guidelines. The patient stated understanding and gave verbal consent to proceeding with molnupiravir treatment. September 24, 2022 1:06 PM ASSESSMENT/PLAN: 1. Suspected COVID-19 virus infection - ICD9: V01.79, ICD10: Z20.822 (primary diagnosis) Discussed quarantine, social distancing otc medications discussed Push fluids -If you experience chest pain/shortness of breath go to ER -If you experience chest pain/shortness of breath go to ER -we will call in treatment if positive for covid. 2. Sore throat - ICD9: 462, ICD10: J02.9 Negative, viral - STREP A MOLECULAR (POC) 3. Flu-like symptoms - ICD9: 780.99, ICD10: R68.89 Testing for covid pending - INFLUENZA A&B MOLECULAR (POC) - 2019 CORONAVIRUS 4. Acute cough - ICD9: 786.2, ICD10: R05.1 Xray negative. - XR CHEST 2V FRONTAL/LAT IMPRESSION: No acute radiographic abnormality. Dictated by : MD Simeon GUZMAN APRN.COPY OPERATOR documented in this encounterOhio [facility]06-30-2023 History of Present illness Narrative* Johana Goldstein RT(R) - 09/24/2022 12:30 PM EDT Radiology Service Progress Note PATIENT NAME: mE Sanz DATE OF SERVICE: September 24, 2022 TIME: 12:34 PM PATIENT IDENTITY VERIFICATION COMPLETED USING TWO (2) IDENTIFIERS: Name and Date of confirmedby patient verbally. FALL SCREENING: Has the patient had 2 falls in the last year or 1 fall with injury or currently using an Ambulatory Assistive Device (Walker, Cane, Wheelchair, Crutches, etc.)? No PATIENT GENDER DATA: Male PATIENT RELEVANT IMPLANT DATA REVIEWED: Yes RADIOLOGY DEPARTMENT: General X-ray: Exam(s) Completed: Chest X-Ray PERIPHERAL IV DATA: Not applicable SIGNED BY: RT Jayda(R) September 24, 2022 12:34 PM documented in this encounterOhio [facility]03-22-2023 Miscellaneous Notes* Telephone Encounter - Anna Kiser - 06/16/2022 9:50 AM EDT Patient left message on nurse line 06/15 that he only got the cream (Anusol) but not the other medication (Linzess) from the pharmacy. I returned call and left message that the nurse will have to do aprior authorization and she will be in contact. Anna Mueller documented in this encounterOhio [facility]03-15-2023 History of Present illness Narrative* Roxana Desouza PA-C - 06/09/2022 10:29 AM EDT CHIEF COMPLAINT: Patient presents with: Hemorrhoids This consult was requested by Toñito Treviño CNP for an opinion regarding hemorroids. My final recommendations will be communicated to the requesting health care provider by way of the shared medical record for internal providers or letter via the [employer] for external providers. HPI: Em Sanz is a 37 year old male who presents for Hemorrhoids. PMHx of HTN, sarcoidosis, T2DM Patient tells me that he has been dealing with hemorrhoids. Seems to come and go. Feels like he is sitting on a ball. Does note some rectal pain and bleeding. Notes some constipation issues, going a small amount in a time. Has tried OTC Miralax BID with little relief. Does get some nausea, no vomiting. Unsure of triggers to this. Appetite is okay. Weight is stable. No smoking. Smokes marijuana occasionally. No alcohol use. Aunt had colon cancer. Record Review: [facility] / Outside records reviewed. PAST MEDICAL HISTORY Diagnosis Date HTN (hypertension) Sarcoidosis Type 2 diabetes (HCC) PAST SURGICAL HISTORY Procedure Laterality Date IR RT HEART CATH Allergies: ALLERGIES No Known Allergies Medications: amLODIPine (NORVASC) 5 mg tablet amoxicillin-clavulanic acid (AUGMENTIN) 875-125 mg per tablet atorvastatin (LIPITOR) 80 mg tablet FREESTYLE WANDA 3 SENSOR ridge buPROPion XL (WELLBUTRIN XL) 150 mg 24 hr tablet divalproex ER (DEPAKOTE ER) 250 mg 24 hr tablet TRULICITY 0.75 mg/0.5 mL pen injector insulin glargine-yfgn (SEMGLEE) 100 unit/mL (3 mL) insulin pen lamoTRIgine (LAMICTAL) 200 mg tablet lisinopril (ZESTRIL) 20 mg tablet metFORMIN (GLUCOPHAGE) 500 mg tablet Take 500 mg by mouth twice daily with meals. glipiZIDE (GLUCOTROL) 5 mg tablet Take 5 mg by mouth twice daily before meals. sulfamethoxazole-trimethoprim (BACTRIM DS,SEPTRA DS) 800-160 mg per tablet Take 1 tablet by mouth three times a week. insulin NPH human isophane (HUMULIN N NPH INSULIN KWIKPEN SUBCUTANEOUS) Inject 40 Units subcutaneously daily at bedtime. FLUoxetine (PROZAC) 20 mg capsule FAMILY HISTORY Problem Relation Age of Onset Colon Cancer Paternal Aunt Employer And Job Title: None on file Years Of Education Completed: Not specified Marital Status: Single Social History Tobacco Use Smoking status: Former Types: Cigarettes Smokeless tobacco: Never Vaping Use Vaping Use: Never used Substance Use Topics Alcohol use: Not Currently Comment: Rarely Drug use: Yes Types: Marijuana Comment: Occ. Review of Systems: Review of Systems Constitutional: Positive for appetite change. Respiratory: Positive for apnea, cough, chest tightness, shortness of breath and wheezing. Cardiovascular: Positive for chest pain. Gastrointestinal: Positive for abdominal distention, abdominal pain, constipation, nausea and rectal pain. All other systems reviewed and are negative. Are you taking any blood thinners? No Physical Examination: BP 158/92 Pulse 78 Ht 6' 1 (1.85m) Wt 405 lb 1.6 oz (183.8kg) BMI 53.46 kg/(m^2). Physical Exam Constitutional: Appearance: Normal appearance. He is obese. HENT: Head: Normocephalic and atraumatic. Eyes: General: No scleral icterus. Extraocular Movements: Extraocular movements intact. Conjunctiva/sclera: Conjunctivae normal. Pupils: Pupils are equal, round, and reactive to light. Cardiovascular: Rate and Rhythm: Normal rate and regular rhythm. Pulses: Normal pulses. Heart sounds: Normal heart sounds. Pulmonary: Effort: Pulmonary effort is normal. Breath sounds: Normal breath sounds. Abdominal: General: Abdomen is flat. Bowel sounds are normal. Palpations: Abdomen is soft. Tenderness: There is abdominal tenderness (mild periumbilical pain to palpation). Musculoskeletal: General: Normal range of motion. Cervical back: Normal range of motion and neck supple. Skin: General: Skin is warm and dry. Coloration: Skin is not jaundiced. Neurological: General: No focal deficit present. Mental Status: He is alert and oriented to person, place, and time. Psychiatric: Mood and Affect: Mood normal. Behavior: Behavior normal. Thought Content: Thought content normal. Judgment: Judgment normal. Assessment/Plan (K64.9) Hemorrhoids, unspecified hemorrhoid type (primary encounter diagnosis) (K59.00) Constipation, unspecified constipation type 1. Hemorrhoids, unspecified hemorrhoid type -- Patient dealing with external hemorrhoids, that come and go in severity. Do bleed for him and are painful. -- Start Anusol cream BID x10 days -- General surgery referral placed - hydrocortisone (ANUSOL-HC) 2.5 % rectal cream; by RECTAL route twice daily for 10 days. Dispense:28 g; Refill: 1 2. Constipation, unspecified constipation type -- Patient has tried and failed Miralax BID. Cannot use Lactulose due to uncontrolled diabetes -- Plan to start Linzess 145 mcg daily. Script sent. - linaclotide (LINZESS) 145 mcg capsule; Take 1 capsule by mouth once daily. Dispense: 30 capsule; Refill: 2 Follow up in office PRN. Recommended to please call office/go to ER if fever, chills, chest pain, SOB, diarrhea, nausea, emesis, worsening abdominal pain, dehydration occurs I spent a total of 20 minutes on the date of the service which included preparing to see the patient, visl-uj-rtur patient care, completing clinical documentation, obtaining and/or reviewing separately obtained history, performing a medically appropriate examination, counseling and educating the pat ient/family/caregiver, and ordering medications, tests, or procedures. Roxana Desouza PA-C June 09, 2022 10:48 AM [facility] Diagnosis Shortness of breath VICKY on CPAP Obstructive sleep apnea (adult) (pediatric) documented in this encounter [facility] Work Phone: Evaluation note* Diagnosis Abnormal liver function test Other abnormal blood chemistry [facility]* Diagnosis Hemorrhoids, unspecified hemorrhoid type- Primary Constipation, unspecified constipation type [facility] Diagnosis Suspected COVID-19 virus infection- Primary Sore throat Acute pharyngitis Flu-like symptoms Other general symptoms Acute cough documented [facility] this [facility] noteNo assessment information availableWWhite Hospital Work Phone: Evaluation note* Diagnosis Generalized abdominal pain- Primary Abdominal pain, generalized Urinary retention Retention of urine, unspecified [facility] encounter [facility] N[facility]ative* Patient 37-year-old male presenting with sore throat congestion lump on neck congestion, back pain. Patient states the back pain is been ongoing for about 3 months now. He states he does have very physical job where he does a lot of lifting. He states that if it is very heavy but he does lift all day but he is unsure of any type of injury but for about 3 months has had back pain it is up in his upper back and radiates to his right flank at times. He states that he has not take anything for thisissue. The pain at times can be very sharp and hurts when he breathes or twist. He denies any spinal surgeries or injuries to his spine or back. He is also complaining of sore throat congestion painful lump on the left side of his neck. This has been ongoing for about a week now. He states he been d eveloping some ear pain. He had multiple ear infections in the past was concerned he might have another weeks now he is developing ear pain as well. His mother was sick prior to him developing symptoms. Denies any fever sweats chills nausea vomiting diarrhea chest pain shortness breath abdominal pain hemoptysis dizziness syncope, rashes numbness tingling, weakness, urinary fecal incontinence, saddle anesthesia, history of nephrolithiasis, dysuria, frequency urgency urination, hematuria. Patienthas no known drug allergies * Gen: As Noted in HPI * Head: As Noted in HPI * Eyes: As Noted in HPI * ENT: As Noted in HPI * Cardiac:As Noted in HPI * Pulmonary: As Noted in HPI * Heme/lymph: As Noted in HPI * GI: As Noted in HPI * : As Noted in HPI * Musculoskeletal: As Noted in HPI * Skin: As Noted in HPI * Neuro: As Noted in HPI * Psych:As Noted in HPI * Review of systems is otherwise negative unless stated above or in history of present illness. [facility] Work Phone: Hospital Discharge instructionsAdditional Instructions Lumbar strain with sciatica symptoms. Take medication as prescribed. Work restrictions as given. Follow-up with occupational health for reevaluation.[facility] Work Phone: Reason for referral (narrative)No reason for referral information availableWWhite Hospital Work Phone: Reason for Referral Status Reason Specialty Diagnoses / Procedures Referred By Contact Referred To Contact Pending Review PCP Requested Referral Pulmonary and Critical Care Medicine Diagnoses Sarcoidosis Procedures CONSULT TO PULM/CRITICAL CARE NEW PATIENT VISIT LEVEL 5 Tian Williamson [address] [place] [id number] Status Reason Specialty Diagnoses / Procedures Referred By Contact Referred To Contact Pending Review PCP Requested Referral Endocrinology Diagnoses Type 2 diabetes mellitus with hyperglycemia, with long-term current use of insulin (HCC) Procedures CONSULT TO ENDOCRINOLOGY NEW PATIENT VISIT LEVEL 5 Tian Williamson [address] [place] [address] Status Reason Specialty Diagnoses / Procedures Re ferred By Contact Referred To Contact Open Pulmonary Disease Diagnoses Shortness of breath VICKY on CPAP Procedures Full PFT Study With Bronchodilator Davion Adam MD [address] [facility]. [address] [address] Status Reason Specialty Diagnoses / Procedures Referre d By Contact Referred To Contact Open Radiology Diagnoses Abnormal liver function test Procedures US ABDOMEN LIMITED Cate Reyes MD [address] [facility] [address] [place] [address] Specialty Diagnoses / Procedures Referred By Contac t Referred To Contact General Surgery Diagnoses Hemorrhoids, unspecified hemorrhoid type Procedures CONSULT TO GENERAL SURGERY OFFICE/OUTPATIENT [facility] 60-74 MINUTES Roxana Desouza PA-C [address] [place] [address] Referral ID Status Reason Start Date Expiration Date Visits Requested Visits Authorized [id number] Pending Review PCP Requested Referral 06/09/2022 06/09/2023 1 1 Specialty Diagnoses / Procedures Referred By Chelo valdes Referred To Contact Diagnoses Constipation, unspecified constipation type Roxana Desouza PA-C [address] [place] [address] Referral ID Status Reason Start Date Expiration Date V isits Requested Visits Authorized [id number] Pending Review 1 1 Instructions * Patient Instructions* Romina Coon Ma - 06/18/2020 2:46 PM EDT [facility] FACTS Please visit our lab at least 3-5 days before your scheduled appointment to have your lab work drawn, if lab work is ordered. This will allow us the ability to review your lab work results with you during your scheduled visit. [facility] HOURS: Lab is open Tuesday - Tuesday from 6:30am to 5pm and open 8am -12pm on Saturdays. [facility]: Tuesday- 7:30am to 5:30pm. Fridays 7:30-5:00pm and Tuesday 8:00am to 12:00 pm. Routine Lab Orders 365 days after they are entered. If your lab orders , you may be required to wait in the lab while they are reinstated FUTURE ORDERS are lab tests to be completed on the EXPECTED date. These orders 60 days afterthe expected date. STANDING ORDERS are recurring orders with an expiration date. The interval will indicate how often the test should be completed. FASTING LAB means nothing to eat or drink (except water) 10-12 hours before your blood is drawn. CT/MRI/IVP If you have one of these radiology exams ordered along with blood work, please complete the blood work at least one day prior to the scheduled exam. My Chart Schedule My Appointment enables you to view your established primary care provider's open schedule and book an appointment online in real-time. This feature is available in internal medicine, family medicine, or pediatrics at any of our [facility] locations and main campus. documented in this encounter History of Present Illness * Tian Williamson - 06/18/2020 3:08 PM EDT This note was created using [employer]. Subjective Em Sanz is a 35 year old male. The history is provided by the patient. Diabetes He presents for his follow-up diabetic visit. He has type 2 diabetes mellitus. His disease course has been fluctuating. There are no hypoglycemic associated symptoms. There are no hypoglycemic complications. Risk factors for coronary artery disease include family history, dyslipidemia and diabetes mellitus. Current diabetic treatment includes insulin injections and oral agent (dual therapy). He is compliant with treatment most of the time. His weight is stable. He is following a generally unhealthy diet. He participates in exercise intermittently. There is no change in his home blood glucose trend. He moved recently from [place] and needs referral to endo for his DM2 and to pulmonary for his sarcoidosis, He takes lamictal for bipolar disorder, Review of Systems All other systems reviewed and are negative. Past Medical history: No past medical history on file. Past Surgical History: No past surgical history on file. Family History: No family history on file. Social History: Social History Tobacco Use Smoking status: Former Smoker Smokeless tobacco: Never Used Substance Use Topics Alcohol use: Not Currently Drug use: Not Currently Current Medications: metFORMIN (GLUCOPHAGE) 500 mg tablet, Take 500 mg by mouth twice daily with meals., Disp: , Rfl: lamoTRIgine (LAMICTAL) 25 mg tablet, Take 25 mg by mouth once daily., Disp: , Rfl: predniSONE (DELTASONE) 20 mg tablet, Take 20 mg by mouth once daily., Disp: , Rfl: glipiZIDE (GLUCOTROL) 5 mg tablet, Take 5 mg by mouth twice daily before meals., Disp: , Rfl: sulfamethoxazole-trimethoprim (BACTRIM DS,SEPTRA DS) 800-160 mg per tablet, Take 1 tablet by mouth three times a week., Disp: , Rfl: insulin NPH human isophane (HUMULIN N NPH INSULIN KWIKPEN SUBCUTANEOUS), Inject 40 Units subcutaneously daily at bedtime., Disp: , Rfl: lisinopril (ZESTRIL, PRINIVIL) 10 mg tablet, Take 1 tablet by mouth once daily., Disp: 30 tablet, Rfl: 1 No facility-administered encounter medications on file as of 06/18/2020. Allergies: ALLERGIES Not on File Vitals: BP 160/110 Pulse 101 Temp (Src) 97.9 (Temporal) Ht 6' 1 (1.85m) Wt 459 lb (208.2kg) SpO2 98% BMI 60.57 kg/(m^2). Objective BP 160/110 (BP Site: Left Arm, BP Position: Sitting, BP Cuff Size: Large Adult) Pulse 101 Temp 36.6 C (97.9 F) (Temporal) Ht 185.4 cm (6' 1) Wt (!) 208.2 kg (459 lb) SpO2 98% BMI 60.56 kg/m Physical Exam Constitutional: General: He is not in acute distress. HENT: Head: Normocephalic and atraumatic. Cardiovascular: Rate and Rhythm: Normal rate and regular rhythm. Heart sounds: Normal heart sounds. No murmur heard. No friction rub. No gallop. Pulmonary: Effort: Pulmonary effort is normal. No respiratory distress. Breath sounds: Normal breath sounds. No wheezing or rales. Chest: Chest wall: No tenderness. Abdominal: General: Bowel sounds are normal. There is no distension. Palpations: Abdomen is soft. There is no mass. Tenderness: There is no abdominal tenderness. There is no guarding or rebound. Neurological: Mental Status: He is alert. Assessment and Plan ASSESSMENT/PLAN: 1. Sarcoidosis - ICD9: 135, ICD10: D86.9 (primary diagnosis) - CONSULT TO PULM/CRITICAL CARE 2. Type 2 diabetes mellitus with hyperglycemia, with long-term current use of insulin (HCC) - ICD9:250.00, 790.29, V58.67, ICD10: E11.65, Z79.4 - CONSULT TO ENDOCRINOLOGY - HEMOGLOBIN A1C (FOR REMOTE [facility] USE) 3. Essential hypertension - ICD9: 401.9, ICD10: I10 - CBC + DIFF (FOR REMOTE [facility] USE) - CMP (CMP) (FOR REMOTE [facility] USE) 4. Mixed hyperlipidemia - ICD9: 272.2, ICD10: E78.2 - LIPID PANEL (LIPB) (FOR REMOTE [facility] USE) Tian Williamson MD documented in this encounter Assessments Diagnosis Sarcoidosis- Primary Type 2 diabetes mellitus with hyperglycemia, with long-term current use of insulin (HCC) Essential hypertension Unspecified essential hypertension Mixed hyperlipidemia Summary Purpose Family History No Family History Records FoundNo Family History Records FoundNo Family History Records FoundNo Family History Records FoundNo Family History Records FoundNo Family History Records Found Advance Directives No Advanced Directives Records Found Advance Directive Response Recorded Date/ Time Living Will No June 30, 2023 3:08pm Power of Food Packer No June 29 3:08pm Advance Directive Response Recorded Date/ Time Do you have a Healthcare Power of Food Packer? No November 07, 2024 2:50pm Chief Complaint Ear pain, lump in neck, sore throat, cough, congestion, back pain Chief Complaint and Reason for Visit Chief Complaint urinary symptoms, ri b pain Chief Complaint Admit Date BACK November 07, 2024 1: 55pm Additional Source Comments Source Comments (unrecognize d section and content) In the event this informatio n is protected by the Federal Confidentiality of Alcohol and Drug Abuse Patient Records regulations: The Federal rules restrict any use of the information to criminally investigate or prosecute any alcohol or drug abuse patient.[facility] the event this information is protected by the Federal Confidentiality of Alcohol and Drug Abuse Patient Records regulations: The Federal rules restrict any use of the information to criminally investigate or prosecute any alcohol or drug abuse patient.[facility] Center[facility] the event this information is protected by the Federal Confidentiality of Alcohol and Drug Abuse Patient Records regulations: The Federal rules restrict any use of the information to criminally investigate or prosecute any alcohol or drug abuse patient.[facility] Center[facility] the event this information is protected by the Federal Confidentiality of Alcohol and Drug Abuse Patient Records regulations: The Federal rules restrict any use of the information to criminally investigate or prosecute any alcohol or drug abuse patient.[facility] Center[facility] the event this information is protected by the Federal Confidentiality of Alcohol and Drug Abuse Patient Records regulations: The Federal rules restrict any use of the information to criminally investigate or prosecute any alcohol or drug abuse patient.[facility] Center[facility] the event this information is protected by the Federal Confidentiality of Alcohol and Drug Abuse Patient Records regulations: The Federal rules restrict any use of the information to criminally investigate or prosecute any alcohol or drug abuse patient.[facility] CenterIn the event this information is protected by the Federal Confidentiality of Alcohol and Drug Abuse Patient Records regulations: The Federal rules restrict any use of the information to criminally investigate or prosecute any alcohol or drug abuse patient.[facility] CenterIn the event this information is protected by the Federal Confidentiality of Alcohol and Drug Abuse Patient Records regulations: The Federal rules restrict any use of the information to criminally investigate or prosecute any alcohol or drug abuse patient.[facility] CenterIn the event this information is protected by the Federal Confidentiality of Alcohol and Drug Abuse Patient Records regulations: The Federal rules restrict any use of the information to criminally investigate or prosecute any alcohol or drug abuse patient.[facility] CenterIn the event this information is protected by the Federal Confidentiality of Alcohol and Drug Abuse Patient Records regulations: The Federal rules restrict any use of the information to criminally investigate or prosecute any alcohol or drug abuse patient.[facility] CenterIn the event this information is protected by the Federal Confidentiality of Alcohol and Drug Abuse Patient Records regulations: The Federal rules restrict any use of the information to criminally investigate or prosecute any alcohol or drug abuse patient.[facility] CenterIn the event this information is protected by the Federal Confidentiality of Alcohol and Drug Abuse Patient Records regulations: The Federal rules restrict any use of the information to criminally investigate or prosecute any alcohol or drug abuse patient.[facility] Reason for Visit (unrecogniz ed section and content) Reason Comments Physical Status Reason Specialty Diagnoses / Procedures Referred By Contact Referred To Contact Authorized Patient Cleared - Qualified 100% FAS Diagnoses DOT Physical Procedures DOT Physical Self, [facility] Dept Reason Comments Hemorrhoids Reason Comments Medication Problem Reason Comments Results Reason Comments Sore Throat Fever, bodyaches x3 days Reason Comments Diarrhea Hemorids x8 days Reason Comments Polysomnogram Reason Comments Radiology US (unrecognized sect ion and content) No Status Records FoundNo Status Records FoundNo Status Records FoundNo Status Records FoundNo Status Records FoundNo Status Records Found INFORMATION SOURCE (unrecogn ized section and content) DATE CREATED AUTHOR 01/20/2021 [facility] DATE CREATED AUTHOR AUTHOR'S ORGANIZ ATION 06/05/2022 [facility] DATE CREATED AUTHOR AUTHOR'S ORGANIZ ATION 07/01/2022 [facility] DATE CREATED AUTHOR AUTHOR'S ORGANIZ ATION 06/22/2024 [facility] DATE CREATED AUTHOR AUTHOR'S ORGANIZ ATION 10/29/2024 [facility] DATE CREATED AUTHOR AUTHOR'S ORGANIZ ATION 12/17/2024 [facility] Care Teams (unrecognized sec tion and content) Aerobics Instructor Relationship Specialty Start Date End Date Toñito Treviño CNP [address] [place] [address] PCP - General Family Medicine 06/08/22 Aerobics Instructor Relationship Specialty Start Date End Date Toñito Treviño CNP [address] [place] [address] PCP - General Family Medicine 06/08/22 Aerobics Instructor Relationship Specialty Start Date End Date Toñito Treviño CNP [address] [place] [address] PCP - General Family Medicine 06/08/22 Aerobics Instructor Relationship Specialty Start Date End Date Toñito Treviño CNP [address] [place] [address] PCP - General Family Medicine 06/08/22 Team Status: Active Member Role Status Dates No Primary Care Physician Primary Care Provider Active Team Status: Inactive Member Role Status Dates Dr. Ladarius Perales MD Emergency Provider Active No Primary Care Physician Primary Care Provider Active Aerobics Instructor Relationship Specialty Start Date End Date Toñito Treviño CNP [address] [place] [address] PCP - General Family Medicine 06/08/22 Aerobics Instructor Relationship Specialty Start Date End Date Toñito Treviño, COPY OPERATOR [address] [place] [address] PCP - General Family Medicine 06/08/22 Aerobics Instructor Relationship Specialty Start Date End Date Toñito Treviño, FUR MIXER OPERATOR.COPY OPERATOR [address] [place] [address] PCP - General [facility] Medicine 06/08/22 Aerobics Instructor Relationship Specialty Start Date End Date Toñito Treviño, FUR MIXER OPERATOR.COPY OPERATOR [address] [place], [place] [id number] PCP - [facility] Medicine 06/08/22 Team Status: Active Member Role/Relationship Status Dates Nina Trevor Primary Care Provider Active Team Status: Inactive Member Role/Relationship Status Dates Dr. Servando Mccoy , DO Emergency Provider Active Start : November 07, 2024 End: November 07, 2024 Nina Lau CNP [place] Primary Care Provider Active Start: November 07, 2024 End: November 07, 2024 Goals (unrecognized section and content) Goals may be documented in a n alternate sectionGoals may be documented in an alternate section FOR RECORDS PERTAINING TO PATIENTS WHO ARE OR HAVE BEEN ENROLLED IN A CHEMICAL DEPENDENCY/SUBSTANCEABUSE PROGRAM, SOME INFORMATION MAY BE OMITTED. This clinical summary was aggregated from multiple sources. Caution should be exercised in using it in the provision of clinical care. This summary normalizes information from multiple sources, and as a consequence, information in this document may materially change the coding, format and clinical context of patient data. In addition, data may be omitted in some cases. CLINICAL DECISIONS SHOULD BE BASED ON THE PRIMARY CLINICAL RECORDS. [facility] [employer] provides no warranty or guarantee of the accuracy or completeness of information in this document.
--- NOTE | 2025-03-09 14:45 | RAD_ITS ---
PROCEDURE: HIP, UNI W/ PELVIS 2-3 VIEWS 03/09/2025 REASON FOR EXAM: RIGHT SIDED HIP PAIN AFTER FALL TECHNIQUE: Procedure Code: RAD Modality: DX Procedure: HIP, UNI W/ PELVIS 2-3 VIEWS Laterality: Right FINDINGS: No acute fracture or dislocations. No acute soft tissue abnormalities. No radiographic foreign body. RAD/HIP, UNI W/ Pelvis 2-3 Views IMPRESSION: No acute fracture or dislocations. Reading Location: [id number]
[2025-03-09 16:21] VITALS: BP 157/88; PULSE 83; RESP 18; TEMP 35.9; O2SAT 96
== END 2025-03-09 16:29 | disposition home or self-care (01) ==
PROVIDERS: Emergency Provider Emergency Medicine; Visit Provider Emergency Medicine
DX: S20.229A Contusion of unspecified back wall of thorax, initial encounter (principal); F31.9 Bipolar disorder, unspecified; E11.9 Type 2 diabetes mellitus without complications; S70.02XA Contusion of left hip, initial encounter; W00.9XXA Unspecified fall due to ice and snow, initial encounter
CPT/HCPCS: 72131; 73502; 99282